=== PATIENT | female | born 1945 | race Caucasian/White ===

== ENCOUNTER → 2017-07-22 | Outpatient (CLI) | payer MEDICARE, OTHER | END | disposition home or self-care (01) | LOC: OIH 10:38 | PROVIDERS: ATTEND Family Medicine | DX: S83.411A Sprain of medial collateral ligament of right knee, initial encounter (principal); X58.XXXA Exposure to other specified factors, initial encounter; Y93.89 Activity, other specified; Y92.89 Other specified places as the place of occurrence of the external cause; Y99.8 Other external cause status | CPT/HCPCS: 73562 ==

== ENCOUNTER → 2018-05-04 | Outpatient (CLI) | payer MEDICARE | END | disposition home or self-care (01) | LOC: RAH 13:09 | PROVIDERS: ATTEND Family Medicine | DX: R22.42 Localized swelling, mass and lump, left lower limb (principal) | CPT/HCPCS: 76882 ==

== ENCOUNTER → 2019-09-15 | Outpatient (CLI) | payer MEDICARE | END | disposition home or self-care (01) | LOC: RAH 11:30 | PROVIDERS: ATTEND Family Medicine | DX: I65.21 Occlusion and stenosis of right carotid artery (principal); I69.320 Aphasia following cerebral infarction | CPT/HCPCS: 93880 ==

== ENCOUNTER → 2019-11-02 | Outpatient (CLI) | payer OTHER ==
[~2019-11-02] MED LIST: ASPI-556 PO; BIOT10005 PO; BIOT10006 PO; CINN500C PO; CLOP75TA14 PO; DOXY100C2 PO; GLIM4TAB36 PO; MAGN400C PO; NITR0.4T50 SL; ROSU5TAB PO; TELM40TA8 PO; ozempic SQ
== END | disposition home or self-care (01) ==
LOC: OIH 10:04
PROVIDERS: ATTEND Internal Medicine Cardiovascular Disease
DX: Z13.6 Encounter for screening for cardiovascular disorders (principal)
CPT/HCPCS: 75571

== ENCOUNTER → 2019-11-20 | Outpatient (CLI) | payer MEDICARE ==
[~2019-11-20] MED LIST changes: -ASPI-556 PO; -BIOT10005 PO; -BIOT10006 PO; -CINN500C PO; -CLOP75TA14 PO; -DOXY100C2 PO; -GLIM4TAB36 PO; -MAGN400C PO; -NITR0.4T50 SL; +REGADENOSON 0.4 MG/5 ML PF SYG IVP SCH; -ROSU5TAB PO; -TELM40TA8 PO; -ozempic SQ
== END | disposition home or self-care (01) ==
LOC: SHCH 08:22
PROVIDERS: ATTEND Internal Medicine Cardiovascular Disease
DX: I35.0 Nonrheumatic aortic (valve) stenosis (principal); I10 Essential (primary) hypertension
CPT/HCPCS: 78452; 93017; 96374; A9500 ×2; J2785

== ENCOUNTER → 2019-11-22 | Outpatient (CLI) | payer MEDICARE ==
[~2019-11-22] MED LIST changes: +ASPI-556 PO; +BIOT10005 PO; +BIOT10006 PO; +CINN500C PO; +CLOP75TA14 PO; +DOXY100C2 PO; +FENTANYL CITRATE PF 50 MCG/1 ML 2ML VIAL ONE; +GLIM4TAB36 PO; +GLYCOPYRROLATE 1 MG/5 ML SYRINGE ONE; +LIDOCAINE PF 2% 5ML ABBOJECT ONE; +MAGN400C PO; +MIDAZOLAM HCL 1 MG/ML 2ML VIAL ONE; +NEOSTIGMINE 5MG/5ML SYR IV ONE; +NITR0.4T50 SL; +PROPOFOL 10 MG/ML 20ML VIAL IV ONE; -REGADENOSON 0.4 MG/5 ML PF SYG IVP SCH; +ROCURONIUM 10MG/1ML SYR 10 MG/ML ML ONE; +ROPIVACAINE 0.5% 5MG/ML 30ML IJ ONE; +ROSU5TAB PO; +SODIUM CHLORIDE 0.9% 10 ML VIAL ONE; +TELM40TA8 PO; +ozempic SQ
== END | disposition home or self-care (01) ==
LOC: SHCH 14:38
PROVIDERS: ATTEND Internal Medicine Cardiovascular Disease
DX: I65.21 Occlusion and stenosis of right carotid artery (principal); I10 Essential (primary) hypertension
CPT/HCPCS: 93306; J2001; J2250; J2704; J2710; J2795; J3010; J3490

== ENCOUNTER 2020-01-09 07:56 | Observation (INO) | payer MEDICARE ==
[~2020-01-09] VITALS: Ht 165.1 cm; Wt 106.0 kg
[2020-01-09] VITALS (8 sets, daily range): BP systolic 132–156; BP diastolic 59–75
[~2020-01-09 07:56] MED LIST changes: -BIOT10006 PO; -CLOP75TA14 PO; -FENTANYL CITRATE PF 50 MCG/1 ML 2ML VIAL ONE; -GLYCOPYRROLATE 1 MG/5 ML SYRINGE ONE; -LIDOCAINE PF 2% 5ML ABBOJECT ONE; -MIDAZOLAM HCL 1 MG/ML 2ML VIAL ONE; -NEOSTIGMINE 5MG/5ML SYR IV ONE; -NITR0.4T50 SL; -PROPOFOL 10 MG/ML 20ML VIAL IV ONE; -ROCURONIUM 10MG/1ML SYR 10 MG/ML ML ONE; -ROPIVACAINE 0.5% 5MG/ML 30ML IJ ONE; -ROSU5TAB PO; -SODIUM CHLORIDE 0.9% 10 ML VIAL ONE; -ozempic SQ
[2020-01-09 08:33] LABS: APPEARANCE,URINE Clear (CLEAR); BILIRUBIN,URINE Negative (NEGATIVE); COLOR,URINE Yellow (YELLOW); GLUCOSE, URINE (UA) 250 mg/dL (NEGATIVE); KETONES,URINE Negative (NEGATIVE); LEUKOCYTE ESTERASE ,URINE Negative (NEGATIVE); NITRATE,URINE Negative (NEGATIVE); OCCULT BLOOD,URINE Negative (NEGATIVE); PROTEIN,URINE Negative (NEGATIVE)
[2020-01-09 09:00] LABS: BASOPHILS % (AUTO) 0.9 % (0.0-5.0); EOSINOPHILS % (AUTO) 3.3 % (0.0-8.0); MEAN CORPUSCULAR HGB CONC 32.8 g/dL (32.0-36.0); MEAN CORPUSCULAR VOLUME 94.8 fL (79-99); MONOCYTES % (AUTO) 10.1 % (3.0-13.0); PLATELET COUNT (AUTO) 251 K/uL (130-400); RED BLOOD CELL COUNT(AUTO) 4.22 MIL/uL (4.00-5.50); RED CELL DISTRIBUTION WIDTH 13.1 % (11.0-15.5); WHITE BLOOD COUNT (AUTO) 5.5 K/uL (4.8-10.8)
[2020-01-09 09:13] LABS: INR 0.99 (0.85-1.15); PARTIAL THROMBOPLASTIN TIME 27.9 SEC (26.3-35.5); PROTHROMBIN TIME 10.7 SEC (9.6-11.6)
[2020-01-09 09:15] LABS: BACTERIA,URINE Rare /HPF (None Seen); RBC,URINE 0-1 /HPF (0-1); WBC,URINE 0-1 /HPF (0-1)
[2020-01-09] MEDS ORDERED: SODIUM CHLORIDE 0.9% 1000ML 1,000 ML IV ONE (09:24)
[2020-01-09 09:27] LABS: CREATININE 0.9 mg/dL (0.5-1.5); POTASSIUM 4.2 mmol/L (3.5-5.1)
--- NOTE | 2020-01-09 09:45 | NUR ---
16 TAJIK KELLER CATHETER INSERTED UNDER STERILE TECHNIQUE BY SHELLY TIDWELL RN. URINE IN LINE NOTED. BAG SECURED TO LEG.
[2020-01-09] MEDS ORDERED: SODIUM BICARB 50MEQ 50ML VIAL ONE (09:47)
[2020-01-09] MEDS ORDERED: HEPARIN SODIUM 1000UNIT/ML 10ML VIAL ONE (09:48)
[2020-01-09] MEDS ORDERED: IOHEXOL-350 50ML VIAL IV ONE (09:48)
[2020-01-09] MEDS ORDERED: IOHEXOL 350 MG/ML 100ML INFUS..BTL IV ONE (09:48)
[2020-01-09] MEDS ORDERED: NITROGLYCERIN 2 MG/VIAL VIAL IV ONE (09:48)
[2020-01-09] MEDS ORDERED: LIDOCAINE HCL 2% 20ML ONE (09:48)
[2020-01-09] MEDS ORDERED: MIDAZOLAM HCL 1 MG/ML 2ML VIAL ONE (09:50)
[2020-01-09] MEDS ORDERED: MEPERIDINE-PF 25 MG/ML SYG ONE (09:50)
[2020-01-09] MEDS ORDERED: ASPIRIN 325MG EC TAB 325 MG TABLET.DR PO ONE (11:08)
[2020-01-09] MEDS ORDERED: CLOPIDOGREL BISULFATE 300 MG TAB ONE (11:08)
[2020-01-09] MEDS: SODIUM CHLORIDE 0.9% 1000ML 1,000 ML IV SCH ×2 (11:19→20:28)
[2020-01-09] MEDS ORDERED: ONDANSETRON HCL 4 MG/2 ML VIAL IVP PRN (11:30)
[2020-01-09] MEDS ORDERED: GLUCAGON 1MG KIT 1 MG ML IM PRN (11:30)
[2020-01-09] MEDS ORDERED: ACETAMINOPHEN 325 MG TAB PO PRN (11:30)
[2020-01-09] MEDS: INSULIN HUMULIN R 100 UNIT/ML 3ML SQ SCH ×5 (11:30→20:28)
[2020-01-09] MEDS ORDERED: DEXTROSE 50%-WATER 50 ML DISP.SYRIN IV PRN (11:30)
[2020-01-09] MEDS ORDERED: HYDRALAZINE HCL 20 MG/ML VIAL IM PRN (13:45)
[2020-01-09] MEDS ORDERED: LOSARTAN 50 MG TABLET PO SCH (21:00)
[2020-01-09] MEDS ORDERED: GLIMEPIRIDE 2 MG TABLET PO SCH (21:00)
[2020-01-09] MEDS ORDERED: MAGNESIUM OXIDE 400 MG TABLET PO SCH (21:00)
[2020-01-10 00:04] VITALS: BP 125/52
[2020-01-10 04:03] LABS: HEMATOCRIT 38.5 % (36-48); MEAN CORPUSCULAR HEMOGLOBIN 31.3 pg (27.0-33.0); MEAN CORPUSCULAR HGB CONC 33.2 g/dL (32.0-36.0); MEAN CORPUSCULAR VOLUME 94.1 fL (79-99); RED BLOOD CELL COUNT(AUTO) 4.09 MIL/uL (4.00-5.50); WHITE BLOOD COUNT (AUTO) 6.7 K/uL (4.8-10.8)
[2020-01-10 04:08] VITALS: BP 136/58
[2020-01-10 04:22] LABS: ALBUMIN 3.4 g/dL (3.5-5.0); BILIRUBIN,TOTAL 0.5 mg/dL (0.2-1.0); CREATININE 0.8 mg/dL (0.5-1.5); POTASSIUM 4.3 mmol/L (3.5-5.1); TOTAL PROTEIN, SERUM 6.9 g/dL (6.0-8.3)
[2020-01-10] MEDS: INSULIN HUMULIN R 100 UNIT/ML 3ML SQ SCH ×4 (05:07→11:35)
[2020-01-10] MEDS: SODIUM CHLORIDE 0.9% 1000ML 1,000 ML IV SCH (05:07)
--- NOTE | 2020-01-10 07:45 | NUR ---
AM ASSESSMENT PT LAYING IN BED, WATCHING TV. A/O X 3. NO SOB. NO DISTRESS NOTED. DENIES CHEST PAIN OR DISCOMFORT. DENIES PALPITATIONS. TELE: SB. DENIES N/V AND/OR DIARRHEA. RT GROIN DSG DRY & INTACT. NO BLEEDING, NO HEMATOMA NOTED. PUNCTURE SITE SOFT, NON-TENDER. (+) BILATERAL PEDAL PULSES. BLE PINK & WARM TO TOUCH. UP AD DONNELL. INSTRUCTED TO CALL FOR ASSISTANCE. CALL EILEEN W/IN REACH.
[2020-01-10 08:33] VITALS: BP 133/65
[2020-01-10] MEDS ORDERED: ASPIRIN 81 MG EC TAB PO SCH (09:00)
[2020-01-10] MEDS ORDERED: CLOPIDOGREL BISULFATE 75 MG TAB PO SCH (09:00)
[2020-01-10] MEDS ORDERED: DOXYCYCLINE HYCLATE 100 MG TABLET PO SCH (09:00)
[2020-01-10 12:28] VITALS: BP 139/57
[2020-01-10] MEDS ORDERED: CLOP75TA14 PO (15:54)
--- NOTE | 2020-01-10 16:20 | NUR ---
[id number] Patient signed GARZA Letter, i faxed GARZA Letter to [phone] and placed in chart under consent tab.
[2020-01-10 16:50] VITALS: BP 128/63
--- NOTE | 2020-01-10 17:20 | NUR ---
DISCHARGE VERBAL & WRITTEN DISCHARGE INSTRUCTIONS REVIEWED & GIVEN TO PT. QUESTIONS ENCOURAGED & CLARIFIED. PROPER CARE & ACTIVITY AFTER LEFT HEART CATH W/STENT REVIEWED. NEW PRESCRIBED MEDICATION REVIEWED. REINFORCED IMPORTANCE OF TAKING PLAVIX PRESCRIBED & NOT MISSING ANY DOSES. STATES UNDERSTANDING. PRESCRIPTION TRANSMITTED TO PHARMACY IN FILE. STENT CARD GIVEN TO PT. TELE ROSMERY REMOVED EARLIER. IV DC'D @ THIS TIME. PT TO GATHER PERSONAL BELONGINGS. FRIEND TO TRANSPLANT NURSE PRACTITIONER PT FROM [facility] – [place].
--- NOTE | 2020-01-10 17:50 | NUR ---
DISCHARGE FRIEND HERE TO TAKE PT HOME. PT TAKEN TO PRIVATE VEHICLE VIA WC BY Eliseo MEDEIROS PCP. NO DISTRESS NOTED.
[2020-01-10] MEDS ORDERED: CINNAMON 500 MG PO SCH (21:00)
[2020-01-10] MEDS ORDERED: BIOTIN 10000 MCG PO SCH (21:00)
[2020-04-23] MEDS ORDERED: NITR0.4T50 SL (11:42)
[2020-04-23] MEDS ORDERED: CINN500C PO (11:42)
[2020-04-23] MEDS ORDERED: BIOT10006 PO (11:42)
[2020-04-23] MEDS ORDERED: ROSU5TAB PO (11:43)
[2020-04-23] MEDS ORDERED: ozempic SQ (11:51)
== END 2020-01-10 17:50 | disposition home or self-care (01) ==
LOC: CLH 07:56 → DAH 07:56 → CLH 07:57 → DAHIP 07:57 → 4AH 12:46
PROVIDERS: ADMIT Internal Medicine Pulmonary Disease; ATTEND Internal Medicine Pulmonary Disease
DX: I25.119 Atherosclerotic heart disease of native coronary artery with unspecified angina pectoris (principal); I10 Essential (primary) hypertension; E11.9 Type 2 diabetes mellitus without complications; E78.5 Hyperlipidemia, unspecified; I45.10 Unspecified right bundle-branch block; E66.9 Obesity, unspecified; L71.9 Rosacea, unspecified; Z88.1 Allergy status to other antibiotic agents; Z88.5 Allergy status to narcotic agent; Z88.8 Allergy status to other drugs, medicaments and biological substances; Z79.899 Other long term (current) drug therapy; Z79.82 Long term (current) use of aspirin; Z98.84 Bariatric surgery status; Z79.02 Long term (current) use of antithrombotics/antiplatelets
CPT/HCPCS: 36415 ×2; 71045; 80048; 80053; 80061; 81001; 82948 ×7; 85025; 85027; 85347 ×2; 85610; 85730; 93005; 93458; 94660 ×2; A4215; A4216; A4221; A4222; A4223 ×3; A4606; A4663; C1760; C1769; C1874; C1887; C1894; C9600; G0378 ×18; J1644 ×2; J1815 ×3; J2175; J2250; J3490 ×3; J7030; Q9965 ×2; Q9967 ×2

== ENCOUNTER → 2020-04-03 | Outpatient (CLI) | payer MEDICARE ==
[~2020-04-03] MED LIST changes: +BIOT10006 PO; +CLOP75TA14 PO; +NITR0.4T50 SL; +ROSU5TAB PO; +ozempic SQ
== END | disposition home or self-care (01) ==
LOC: RAH 08:09
PROVIDERS: ATTEND Family Medicine
DX: Z12.31 Encounter for screening mammogram for malignant neoplasm of breast (principal)
CPT/HCPCS: 77067

== ENCOUNTER 2020-04-24 06:00 | Observation (INO) | payer MEDICARE ==
[2020-04-22 11:19] LABS: BASOPHILS % (AUTO) 0.8 % (0.0-5.0); EOSINOPHILS % (AUTO) 3.4 % (0.0-8.0); LYMPHOCYTES % (AUTO) 27.6 % (21.0-51.0); MEAN CORPUSCULAR HEMOGLOBIN 31.5 pg (27.0-33.0); MEAN CORPUSCULAR HGB CONC 32.7 g/dL (32.0-36.0); MEAN CORPUSCULAR VOLUME 96.3 fL (79-99); NEUTROPHILS % (AUTO) 58.8 % (40.0-77.0); PLATELET COUNT (AUTO) 249 K/uL (130-400); RED BLOOD CELL COUNT(AUTO) 4.57 MIL/uL (4.00-5.50); RED CELL DISTRIBUTION WIDTH 12.8 % (11.0-15.5); WHITE BLOOD COUNT (AUTO) 5.2 K/uL (4.8-10.8)
[2020-04-22 11:20] LABS: CREATININE 0.9 mg/dL (0.5-1.5); POTASSIUM 4.2 mmol/L (3.5-5.1)
[2020-04-22 12:31] LABS: INR 0.99 (0.85-1.15); PARTIAL THROMBOPLASTIN TIME 27.3 SEC (26.3-35.5); PROTHROMBIN TIME 10.7 SEC (9.6-11.6)
[2020-04-22 12:51] LABS: APPEARANCE,URINE Clear (CLEAR); BILIRUBIN,URINE Negative (NEGATIVE); COLOR,URINE Yellow (YELLOW); GLUCOSE, URINE (UA) Negative (NEGATIVE); KETONES,URINE Negative (NEGATIVE); LEUKOCYTE ESTERASE ,URINE Moderate (NEGATIVE); NITRATE,URINE Negative (NEGATIVE); OCCULT BLOOD,URINE Negative (NEGATIVE); PROTEIN,URINE Negative (NEGATIVE)
[2020-04-22 13:09] LABS: BACTERIA,URINE Rare /HPF (None Seen); RBC,URINE 0-1 /HPF (0-1); SQUAMOUS EPITHELIAL CELL,UR Rare /HPF (0-2)
--- NOTE | 2020-04-23 13:52 | NUR ---
Reported ua results of moderate leuktrase and wbc 2-5, and urine culture of [id number], no new orders.
[~2020-04-24] VITALS: Ht 165.1 cm; Wt 110.7 kg
[2020-04-24] VITALS (11 sets, daily range): BP systolic 117–149; BP diastolic 53–76
[~2020-04-24 06:00] MED LIST changes: -BIOT10006 PO; -DOXY100C2 PO; -GLIM4TAB36 PO
[2020-04-24] MEDS ORDERED: SODIUM CHLORIDE 0.9% 1000ML 1,000 ML IV ONE (06:16)
[2020-04-24] MEDS ORDERED: GLIM4TAB36 PO (06:43)
[2020-04-24] MEDS ORDERED: SODIUM BICARB 50MEQ 50ML VIAL ONE (07:18)
[2020-04-24] MEDS ORDERED: IOHEXOL 350 MG/ML 100ML INFUS..BTL IV ONE (07:19)
[2020-04-24] MEDS ORDERED: NITROGLYCERIN 2 MG/VIAL VIAL IV ONE (07:19)
[2020-04-24] MEDS ORDERED: MEPERIDINE-PF 25 MG/ML SYG ONE ×2 (07:19→08:54)
[2020-04-24] MEDS ORDERED: IOHEXOL-350 50ML VIAL IV ONE (07:19)
[2020-04-24] MEDS ORDERED: HEPARIN SODIUM 1000UNIT/ML 10ML VIAL ONE (07:19)
[2020-04-24] MEDS ORDERED: MIDAZOLAM HCL 1 MG/ML 2ML VIAL ONE ×2 (07:19→08:54)
[2020-04-24] MEDS ORDERED: LIDOCAINE HCL 2% 20ML ONE (07:20)
--- NOTE | 2020-04-24 07:30 | NUR ---
PROCEDURE PT TAKEN TO ELECTRICIAN TELEPHONE VIA BED, NO DISTRESS NOTED. DR Zaid ONTIVEROS INFORMED PATIENT WISHES TO GET KELLER CATHETER SINCE SHE HAS PROBLEMS URINATING WHEN BEDREST. DR Zaid ONTIVEROS CAME TO SPEAK TO PATIENT ABOUT RISK OF KELLER CATHETER , NO ORDERS RECEIVED AT THIS TIME.
[2020-04-24] MEDS ORDERED: EPTIFIBATIDE 2 MG/ML 10 ML VIAL IVP ONE (09:01)
[2020-04-24] MEDS ORDERED: ONDANSETRON HCL 4 MG/2 ML VIAL IVP PRN (09:15)
[2020-04-24] MEDS ORDERED: DEXTROSE 50%-WATER 50 ML DISP.SYRIN IV PRN (09:15)
[2020-04-24] MEDS ORDERED: SODIUM CHLORIDE 0.9% 1000ML 1,000 ML IV SCH (09:15)
[2020-04-24] MEDS ORDERED: NITROGLYCERIN 0.4 MG SL TAB SL SCH (09:15)
[2020-04-24] MEDS: INSULIN HUMULIN R 100 UNIT/ML 3ML SQ SCH ×3 (11:28→20:15)
[2020-04-24] MEDS ORDERED: MAGNESIUM OXIDE 400 MG TABLET PO ONE (18:33)
[2020-04-24] MEDS ORDERED: GLIMEPIRIDE 2 MG TABLET ONE (18:33)
[2020-04-24] MEDS: GLIMEPIRIDE 2 MG TABLET PO SCH (19:32)
[2020-04-24] MEDS ORDERED: CINNAMON BARK 500 MG PO SCH (21:00)
[2020-04-24] MEDS ORDERED: NON-FORMULARY MEDICATION 1 EACH (Glimepiride 4 MG) PO SCH (21:00)
[2020-04-24] MEDS ORDERED: BIOTIN 10,000 MCG PO SCH (21:00)
[2020-04-24] MEDS ORDERED: TELMISARTAN 40 MG PO SCH ×2 (21:00)
[2020-04-24] MEDS ORDERED: BIOTIN 10000 MCG PO SCH (21:00)
[2020-04-24] MEDS ORDERED: NON-FORMULARY MEDICATION 1 EACH (Magnesium Oxide (Magnesium) 400 MG) PO SCH (21:00)
[2020-04-24] MEDS ORDERED: CINNAMON BARK 500MG PO SCH (21:00)
[2020-04-24] MEDS ORDERED: MAGNESIUM OXIDE 400 MG TABLET PO SCH (21:00)
[2020-04-25 00:08] VITALS: BP 113/52
[2020-04-25 03:42] VITALS: BP 115/53
[2020-04-25] MEDS: INSULIN HUMULIN R 100 UNIT/ML 3ML SQ SCH ×2 (05:30→11:30)
[2020-04-25 05:51] LABS: BASOPHILS % (AUTO) 0.7 % (0.0-5.0); EOSINOPHILS % (AUTO) 3.9 % (0.0-8.0); HEMATOCRIT 37.8 % (36-48); LYMPHOCYTES % (AUTO) 25.8 % (21.0-51.0); MEAN CORPUSCULAR HEMOGLOBIN 31.3 pg (27.0-33.0); MEAN CORPUSCULAR HGB CONC 33.1 g/dL (32.0-36.0); MEAN CORPUSCULAR VOLUME 94.7 fL (79-99); MONOCYTES % (AUTO) 12.1 % (3.0-13.0); NEUTROPHILS % (AUTO) 56.8 % (40.0-77.0); PLATELET COUNT (AUTO) 211 K/uL (130-400); RED BLOOD CELL COUNT(AUTO) 3.99 MIL/uL (4.00-5.50); RED CELL DISTRIBUTION WIDTH 12.7 % (11.0-15.5); WHITE BLOOD COUNT (AUTO) 5.6 K/uL (4.8-10.8)
[2020-04-25 05:58] LABS: HEMOGLOBIN A1C 8.2 % (4.0-6.0)
[2020-04-25 06:18] LABS: BILIRUBIN,TOTAL 0.5 mg/dL (0.2-1.0); CREATININE 0.7 mg/dL (0.5-1.5); POTASSIUM 4.1 mmol/L (3.5-5.1); TOTAL PROTEIN, SERUM 6.7 g/dL (6.0-8.3)
[2020-04-25] MEDS ORDERED: NON-FORMULARY MEDICATION 1 EACH (Rosuvastatin Calcium (Crestor) 5 MG) PO SCH (09:00)
[2020-04-25] MEDS ORDERED: ASPIRIN 81 MG EC TAB PO SCH (09:00)
[2020-04-25] MEDS ORDERED: CRESTOR 5MG PO SCH (09:00)
[2020-04-25] MEDS ORDERED: CLOPIDOGREL BISULFATE 75 MG TAB PO SCH (09:00)
[2020-04-25] MEDS: GLIMEPIRIDE 2 MG TABLET PO SCH (09:18)
[2020-04-25 09:33] VITALS: BP 121/59
--- NOTE | 2020-04-25 11:26 | NUR ---
[id number] patient signed GARZA Letter, I faxed GARZA Letter to [phone] and placed in chart under consent tab.
[2020-04-25 12:02] VITALS: BP 138/66
== END 2020-04-25 14:10 | disposition home or self-care (01) ==
LOC: DAH 06:00 → DAHIP 06:01 → 4AH 10:09
PROVIDERS: ADMIT Internal Medicine; ATTEND Internal Medicine
DX: I25.110 Atherosclerotic heart disease of native coronary artery with unstable angina pectoris (principal); I10 Essential (primary) hypertension; E78.5 Hyperlipidemia, unspecified; E66.01 Morbid (severe) obesity due to excess calories; R11.2 Nausea with vomiting, unspecified; E11.9 Type 2 diabetes mellitus without complications; Z98.84 Bariatric surgery status
CPT/HCPCS: 36415 ×2; 71045; 80048; 80053; 80061; 81001; 82948 ×6; 83036; 85025 ×2; 85610; 85730; 87088; 93005; 93458; 96360; 96361 ×2; A4215; A4216; A4221; A4222; A4223 ×3; A4344; A4606; A4663; C1725 ×4; C1760; C1769 ×2; C1874; C1887 ×2; C1894; C9600; G0378 ×19; J1327; J1644 ×2; J1815; J2175 ×2; J2250 ×2; J3490 ×3; J7030; Q9965 ×2; Q9967; 99156; 99157

== ENCOUNTER → 2020-05-16 | Outpatient (CLI) | payer MEDICARE ==
[~2020-05-16] MED LIST changes: +GLIM4TAB36 PO; -ozempic SQ
== END | disposition home or self-care (01) ==
LOC: RAH 08:41
PROVIDERS: ATTEND Family Medicine
DX: R92.8 Other abnormal and inconclusive findings on diagnostic imaging of breast (principal)
CPT/HCPCS: 76641

== ENCOUNTER → 2020-07-03 | Outpatient (CLI) | payer MEDICARE | END | disposition home or self-care (01) | LOC: RAH 08:42 | PROVIDERS: ATTEND Internal Medicine Gastroenterology | DX: K44.9 Diaphragmatic hernia without obstruction or gangrene (principal); K21.9 Gastro-esophageal reflux disease without esophagitis; R13.10 Dysphagia, unspecified; Z98.890 Other specified postprocedural states | CPT/HCPCS: 74220 ==

== ENCOUNTER → 2020-10-02 | Outpatient (CLI) | payer MEDICARE | END | disposition home or self-care (01) | LOC: SHCH 08:25 | PROVIDERS: ATTEND Internal Medicine Cardiovascular Disease | DX: I65.23 Occlusion and stenosis of bilateral carotid arteries (principal) | CPT/HCPCS: 93880 ==

== ENCOUNTER 2020-11-16 05:46 | Inpatient (IN) | payer MEDICARE ==
[2020-11-16] VITALS (22 sets, daily range): BP systolic 112–156; BP diastolic 52–69
[~2020-11-16] VITALS: Ht 165.1 cm; Wt 110.4 kg
[2020-11-16] MEDS ORDERED: METOCLOPRAMIDE 10 MG/2 ML VIAL ONE (06:27)
[2020-11-16] MEDS ORDERED: ONDANSETRON 4MG INJ ONE ×2 (06:28→13:16)
[2020-11-16] MEDS ORDERED: PANTOPRAZOLE 40 MG/VIAL ONE (06:28)
[2020-11-16] MEDS ORDERED: FAMOTIDINE 20MG VIAL IV ONE (06:28)
[2020-11-16 07:07] LABS: BASOPHILS % (AUTO) 0.3 % (0.0-5.0); EOSINOPHILS % (AUTO) 0.4 % (0.0-8.0); HEMATOCRIT 39.3 % (36-48); LYMPHOCYTES % (AUTO) 7.2 % (21.0-51.0); MEAN CORPUSCULAR HGB CONC 33.1 g/dL (32.0-36.0); MEAN CORPUSCULAR VOLUME 93.8 fL (79-99); MONOCYTES % (AUTO) 8.5 % (3.0-13.0); NEUTROPHILS % (AUTO) 83.1 % (40.0-77.0); PLATELET COUNT (AUTO) 261 K/uL (130-400); RED BLOOD CELL COUNT(AUTO) 4.19 MIL/uL (4.00-5.50); RED CELL DISTRIBUTION WIDTH 13.2 % (11.0-15.5); WHITE BLOOD COUNT (AUTO) 14.1 K/uL (4.8-10.8)
[2020-11-16 07:09] LABS: APPEARANCE,URINE Clear (CLEAR); BILIRUBIN,URINE Negative (NEGATIVE); COLOR,URINE Yellow (YELLOW); GLUCOSE, URINE (UA) 250 mg/dL (NEGATIVE); KETONES,URINE Negative (NEGATIVE); LEUKOCYTE ESTERASE ,URINE Trace (NEGATIVE); NITRATE,URINE Negative (NEGATIVE); OCCULT BLOOD,URINE Negative (NEGATIVE); PH,URINE 6.5 (5.0-8.0); PROTEIN,URINE Negative (NEGATIVE)
[2020-11-16 07:27] LABS: INR 1.01 (0.85-1.15)
[2020-11-16 07:29] LABS: PARTIAL THROMBOPLASTIN TIME 21.4 SEC (26.3-35.5)
[2020-11-16 07:31] LABS: ALBUMIN 3.6 g/dL (3.5-5.0); BILIRUBIN,TOTAL 0.9 mg/dL (0.2-1.0); CREATININE 0.8 mg/dL (0.5-1.5); POTASSIUM 5.6 mmol/L (3.5-5.1); TOTAL PROTEIN, SERUM 7.6 g/dL (6.0-8.3)
[2020-11-16 08:14] LABS: BACTERIA,URINE Few /HPF (None Seen); RBC,URINE 0-1 /HPF (0-1)
[2020-11-16 08:16] LABS: WBC,URINE 0-1 /HPF (0-1)
[2020-11-16] MEDS ORDERED: IOHEXOL 350 MG/ML 100ML INFUS..BTL IV ONE (09:10)
[2020-11-16] MEDS ORDERED: KETOROLAC 15MG/ML VIAL (15MG/ML) ONE (09:49)
[2020-11-16] MEDS ORDERED: ZOSYN 3.375GM+NS 50ML 50 ML IV ONE (10:10)
[2020-11-16] MEDS ORDERED: ONDANSETRON 4MG INJ IVP PRN (10:45)
[2020-11-16] MEDS ORDERED: LABETALOL 20MG VIAL IV PRN (10:45)
[2020-11-16] MEDS ORDERED: POTASSIUM CHLORIDE 20MEQ/100ML 100 ML IV PRN ×2 (11:00)
[2020-11-16] MEDS ORDERED: KCL 20 MEQ ERTAB PO PRN (11:00)
[2020-11-16] MEDS ORDERED: DEXTROSE 50%-WATER 50 ML DISP.SYRIN IV PRN (11:00)
[2020-11-16] MEDS ORDERED: POTASSIUM CHLORIDE 10% ELIXIR 20 MEQ/15 ML UDCUP PO PRN (11:00)
[2020-11-16] MEDS ORDERED: GLUCAGON 1MG KIT 1 MG ML IM PRN (11:00)
[2020-11-16] MEDS ORDERED: LIDOCAINE HCL-MPF 1% 2ML VIAL IV PRN ×2 (11:00)
[2020-11-16] MEDS ORDERED: MAGNESIUM 2GM PREMIX 50ML 50 ML IV PRN (11:00)
[2020-11-16] MEDS ORDERED: KETOROLAC 15MG/ML VIAL (15MG/ML) IV PRN (11:30)
[2020-11-16] MEDS ORDERED: CALCIUM GLUC 1GM/10ML VIAL IV ONE (11:33)
[2020-11-16] MEDS: INSULIN HUMULIN R 100 UNIT/ML 3ML SQ SCH ×2 (12:00→19:47)
[2020-11-16] MEDS ORDERED: SUCCINYLCHOLINE CHLORIDE 20 MG/ML 10 ML VIAL ONE (13:15)
[2020-11-16] MEDS ORDERED: MIDAZOLAM HCL 1 MG/ML 2ML VIAL ONE (13:15)
[2020-11-16] MEDS ORDERED: DEXAMETHASONE SOD PHOSPHATE 10MG/ML 1ML VIAL ONE ×2 (13:15→14:59)
[2020-11-16] MEDS ORDERED: LIDOCAINE PF 100MG/5ML (2%) SYRINGE 5ML ONE (13:15)
[2020-11-16] MEDS ORDERED: NEOSTIGMINE 5MG/5ML SYR IV ONE (13:16)
[2020-11-16] MEDS ORDERED: ROCURONIUM 10MG/1ML SYR 10 MG/ML ML ONE (13:16)
[2020-11-16] MEDS ORDERED: PROPOFOL 10 MG/ML 20ML VIAL IV ONE (13:16)
[2020-11-16] MEDS ORDERED: GLYCOPYRROLATE 1 MG/5 ML SYRINGE ONE (13:16)
[2020-11-16] MEDS ORDERED: FENTANYL CITRATE PF 50 MCG/1 ML 2ML VIAL ONE (13:17)
[2020-11-16] MEDS ORDERED: CALCIUM GLUC 1GM/10ML VIAL IV SCH (13:30)
[2020-11-16] MEDS ORDERED: ALBUTEROL 0.083% 2.5 MG/3 ML INH IH ONE (13:30)
[2020-11-16] MEDS ORDERED: CALCIUM GLUC 1GM 1 GM in 0.9%NACL 100ML 100 ML IV SCH (13:30)
[2020-11-16] MEDS ORDERED: BUPIVACAINE/PF 0.5% 30ML VIAL ONE (13:56)
[2020-11-16] MEDS ORDERED: SUGAMMADEX SODIUM 200 MG/2 ML VIAL IV ONE (15:28)
[2020-11-16] MEDS: 0.9%NACL 1000ML 1,000 ML IV SCH ×3 (16:00→20:45)
[2020-11-16] MEDS ORDERED: MEPERIDINE-PF 25 MG/ML SYG ONE (16:11)
[2020-11-16] MEDS: ZOSYN 3.375GM+NS 50ML 50 ML IV SCH (18:42)
[2020-11-16] MEDS ORDERED: OXYCODONE/ACETAMIN 5/325MG TAB PO PRN (19:30)
[2020-11-16] MEDS: FAMOTIDINE 20MG VIAL IV SCH (22:14)
[2020-11-17] VITALS: BP 106/50
[2020-11-17] MEDS: ZOSYN 3.375GM+NS 50ML 50 ML IV SCH ×3 (01:23→18:15)
[2020-11-17 04:00] VITALS: BP 98/46
[2020-11-17] MEDS: 0.9%NACL 1000ML 1,000 ML IV SCH (04:56)
[2020-11-17 05:53] LABS: HEMATOCRIT 34.5 % (36-48); MEAN CORPUSCULAR HGB CONC 32.5 g/dL (32.0-36.0); MEAN CORPUSCULAR VOLUME 95.6 fL (79-99); RED BLOOD CELL COUNT(AUTO) 3.61 MIL/uL (4.00-5.50); RED CELL DISTRIBUTION WIDTH 13.5 % (11.0-15.5); WHITE BLOOD COUNT (AUTO) 15.6 K/uL (4.8-10.8)
[2020-11-17 06:12] LABS: CREATININE 0.9 mg/dL (0.5-1.5); POTASSIUM 3.8 mmol/L (3.5-5.1)
[2020-11-17] MEDS: INSULIN HUMULIN R 100 UNIT/ML 3ML SQ SCH ×4 (06:51→21:00)
[2020-11-17 09:24] VITALS: BP 131/60
[2020-11-17] MEDS: FAMOTIDINE 20MG VIAL IV SCH ×2 (10:26→21:22)
[2020-11-17 12:57] VITALS: BP 136/66
[2020-11-17] MEDS: ENOXAPARIN SODIUM 40 MG/0.4 ML SYRINGE SQ SCH (14:45)
[2020-11-17 17:39] VITALS: BP 127/62
[2020-11-17] MEDS ORDERED: MAGNESIUM CITRATE 296 ML SOLUTION PO ONE (17:40)
[2020-11-17] MEDS ORDERED: FUROSEMIDE 20MG VIAL IV SCH (17:40)
[2020-11-17 20:00] VITALS: BP 127/57
[2020-11-17] MEDS: INSULIN GLARGINE 100 UNITS/ML 10 ML VIAL SQ SCH (21:00)
[2020-11-17] MEDS: GLIMEPIRIDE 2 MG TABLET PO SCH (21:00)
[2020-11-17] MEDS: Telmisartan 40 MG PO SCH (21:00)
[2020-11-18] VITALS (7 sets, daily range): BP systolic 90–146; BP diastolic 48–60
[2020-11-18] MEDS: ZOSYN 3.375GM+NS 50ML 50 ML IV SCH ×3 (01:35→20:14)
[2020-11-18 05:25] LABS: BASOPHILS % (AUTO) 0.4 % (0.0-5.0); EOSINOPHILS % (AUTO) 0.9 % (0.0-8.0); HEMATOCRIT 37.2 % (36-48); LYMPHOCYTES % (AUTO) 16.5 % (21.0-51.0); MEAN CORPUSCULAR HEMOGLOBIN 32.1 pg (27.0-33.0); MEAN CORPUSCULAR HGB CONC 33.6 g/dL (32.0-36.0); MEAN CORPUSCULAR VOLUME 95.6 fL (79-99); MONOCYTES % (AUTO) 6.3 % (3.0-13.0); NEUTROPHILS % (AUTO) 75.3 % (40.0-77.0); PLATELET COUNT (AUTO) 222 K/uL (130-400); RED BLOOD CELL COUNT(AUTO) 3.89 MIL/uL (4.00-5.50); RED CELL DISTRIBUTION WIDTH 13.9 % (11.0-15.5); WHITE BLOOD COUNT (AUTO) 13.4 K/uL (4.8-10.8)
[2020-11-18 05:48] LABS: POTASSIUM 4.3 mmol/L (3.5-5.1)
[2020-11-18] MEDS: INSULIN HUMULIN R 100 UNIT/ML 3ML SQ SCH ×4 (07:30→20:14)
[2020-11-18] MEDS: FAMOTIDINE 20MG VIAL IV SCH ×2 (08:59→20:14)
[2020-11-18] MEDS ORDERED: FUROSEMIDE 20MG VIAL IV SCH (09:00)
[2020-11-18] MEDS: GLIMEPIRIDE 2 MG TABLET PO SCH (09:01)
[2020-11-18] MEDS: ENOXAPARIN SODIUM 40 MG/0.4 ML SYRINGE SQ SCH (09:01)
[2020-11-18] MEDS: IPRATROPIUM 0.5 MG/2.5 ML INH IH SCH ×2 (13:45→22:44)
[2020-11-18] MEDS: Telmisartan 40 MG PO SCH (20:14)
[2020-11-18] MEDS: INSULIN GLARGINE 100 UNITS/ML 10 ML VIAL SQ SCH (20:15)
[2020-11-19] MEDS: ZOSYN 3.375GM+NS 50ML 50 ML IV SCH ×3 (03:39→17:42)
[2020-11-19 04:00] VITALS: BP 115/71
[2020-11-19 05:35] LABS: BASOPHILS % (AUTO) 0.5 % (0.0-5.0); EOSINOPHILS % (AUTO) 3.3 % (0.0-8.0); HEMATOCRIT 35.7 % (36-48); LYMPHOCYTES % (AUTO) 21.4 % (21.0-51.0); MEAN CORPUSCULAR HEMOGLOBIN 30.7 pg (27.0-33.0); MEAN CORPUSCULAR HGB CONC 32.2 g/dL (32.0-36.0); MEAN CORPUSCULAR VOLUME 95.2 fL (79-99); MONOCYTES % (AUTO) 8.5 % (3.0-13.0); NEUTROPHILS % (AUTO) 65.4 % (40.0-77.0); PLATELET COUNT (AUTO) 252 K/uL (130-400); RED BLOOD CELL COUNT(AUTO) 3.75 MIL/uL (4.00-5.50); RED CELL DISTRIBUTION WIDTH 13.5 % (11.0-15.5); WHITE BLOOD COUNT (AUTO) 7.6 K/uL (4.8-10.8)
[2020-11-19 05:42] LABS: MAGNESIUM 2.1 mg/dL (1.80-2.40); POTASSIUM 4.2 mmol/L (3.5-5.1)
[2020-11-19] MEDS: IPRATROPIUM 0.5 MG/2.5 ML INH IH SCH ×3 (07:28→21:20)
[2020-11-19] MEDS: INSULIN HUMULIN R 100 UNIT/ML 3ML SQ SCH ×4 (07:30→21:00)
[2020-11-19 07:59] VITALS: BP 119/56
[2020-11-19] MEDS: ASPIRIN 81 MG EC TAB PO SCH (09:16)
[2020-11-19] MEDS: CLOPIDOGREL 75MG TAB PO SCH (09:17)
[2020-11-19] MEDS: FAMOTIDINE 20MG VIAL IV SCH ×2 (09:17→21:02)
[2020-11-19 11:47] VITALS: BP 121/47
[2020-11-19 16:31] VITALS: BP 129/69
[2020-11-19 20:10] VITALS: BP 117/57
[2020-11-19] MEDS: INSULIN GLARGINE 100 UNITS/ML 10 ML VIAL SQ SCH (21:00)
[2020-11-19] MEDS: Telmisartan 40 MG PO SCH (21:00)
[2020-11-20 00:24] VITALS: BP 131/50
[2020-11-20] MEDS: ZOSYN 3.375GM+NS 50ML 50 ML IV SCH (02:25)
[2020-11-20 04:41] VITALS: BP 149/67
[2020-11-20 05:41] LABS: HEMATOCRIT 35.5 % (36-48); MEAN CORPUSCULAR HEMOGLOBIN 30.9 pg (27.0-33.0); MEAN CORPUSCULAR HGB CONC 32.7 g/dL (32.0-36.0); MEAN CORPUSCULAR VOLUME 94.4 fL (79-99); RED BLOOD CELL COUNT(AUTO) 3.76 MIL/uL (4.00-5.50); RED CELL DISTRIBUTION WIDTH 13.3 % (11.0-15.5)
[2020-11-20] MEDS: INSULIN HUMULIN R 100 UNIT/ML 3ML SQ SCH ×2 (06:36→11:30)
[2020-11-20] MEDS: IPRATROPIUM 0.5 MG/2.5 ML INH IH SCH (07:03)
[2020-11-20 07:30] VITALS: BP 147/60
[2020-11-20] MEDS: ASPIRIN 81 MG EC TAB PO SCH (09:03)
[2020-11-20] MEDS: FAMOTIDINE 20MG VIAL IV SCH (09:03)
[2020-11-20] MEDS: CLOPIDOGREL 75MG TAB PO SCH (09:04)
[2020-11-20 11:00] VITALS: BP 143/56
[2021-02-06] MEDS ORDERED: DOXY100C5 PO (15:25)
== END 2020-11-20 13:30 | disposition home or self-care (01) | DRG 854 ==
LOC: EDH 05:46 → EDHIP 10:35 → OBSVTOIN 10:35 → 3DH 12:01
PROVIDERS: ADMIT Internal Medicine Critical Care Medicine; ATTEND Internal Medicine Critical Care Medicine
PROC: 0DTJ4ZZ Resection of Appendix, Percutaneous Endoscopic Approach (ICD-10-PCS; principal; 2020-11-16 14:45)
DX: A41.9 Sepsis, unspecified organism (principal); K35.891 Other acute appendicitis without perforation, with gangrene; E87.1 Hypo-osmolality and hyponatremia; E66.9 Obesity, unspecified; Z68.34 Body mass index [BMI] 34.0-34.9, adult; K21.9 Gastro-esophageal reflux disease without esophagitis; Z79.82 Long term (current) use of aspirin; Z79.899 Other long term (current) drug therapy; Z83.3 Family history of diabetes mellitus; Z95.5 Presence of coronary angioplasty implant and graft; Z79.02 Long term (current) use of antithrombotics/antiplatelets; Z98.84 Bariatric surgery status; Z96.659 Presence of unspecified artificial knee joint; E87.5 Hyperkalemia; E78.00 Pure hypercholesterolemia, unspecified; E11.9 Type 2 diabetes mellitus without complications; I10 Essential (primary) hypertension; Z79.84 Long term (current) use of oral hypoglycemic drugs; R79.89 Other specified abnormal findings of blood chemistry; I25.10 Atherosclerotic heart disease of native coronary artery without angina pectoris; Z82.3 Family history of stroke; Z80.8 Family history of malignant neoplasm of other organs or systems
CPT/HCPCS: 36415; 71045; 74177; 80048; 80053; 81001; 82948; 83605; 83690; 83735; 83880; 84132; 84484; 85025; 85027; 85610; 85730; 86900; 86901; 87040; 88304; 93005; 94640; 94664; A4344; C9113; G0378; J0330; J0610; J1100; J1650; J1815; J1885; J1940; J2001; J2175; J2250; J2405; J2543; J2704; J2710; J2765; J3010; J3490; J7030; Q9967

== ENCOUNTER 2021-02-05 11:01 | Observation (INO) | payer MEDICARE ==
[~2021-02-05] VITALS: Ht 165.1 cm; Wt 108.0 kg
[~2021-02-05 11:01] MED LIST changes: -BIOT10005 PO; -CINN500C PO; -MAGN400C PO
[2021-02-05 11:09] VITALS: BP 114/75
[2021-02-05 11:30] LABS: HEMATOCRIT 43.9 % (36-48); MEAN CORPUSCULAR HEMOGLOBIN 31.8 pg (27.0-33.0); MEAN CORPUSCULAR HGB CONC 32.8 g/dL (32.0-36.0); MEAN CORPUSCULAR VOLUME 96.9 fL (79-99); PLATELET COUNT (AUTO) 252 K/uL (130-400); RED BLOOD CELL COUNT(AUTO) 4.53 MIL/uL (4.00-5.50); RED CELL DISTRIBUTION WIDTH 12.9 % (11.0-15.5)
[2021-02-05 11:40] LABS: CREATININE 1.2 mg/dL (0.5-1.5); INR 1.04 (0.85-1.15); POTASSIUM 4.2 mmol/L (3.5-5.1); PROTHROMBIN TIME 11.3 SEC (9.6-11.6)
[2021-02-05 11:42] LABS: PARTIAL THROMBOPLASTIN TIME 21.7 SEC (26.3-35.5)
[2021-02-05 11:45] LABS: ALBUMIN 3.9 g/dL (3.5-5.0); BILIRUBIN,TOTAL 0.5 mg/dL (0.2-1.0); TOTAL PROTEIN, SERUM 8.1 g/dL (6.0-8.3)
[2021-02-05] MEDS ORDERED: ACETAMINOPHEN 500 MG TABLET PO SCH (12:30)
[2021-02-05 12:39] LABS: BAND NEUTROPHILS % (MANUAL) 2 % (0-2); BASOPHILS % (MANUAL) 2 % (0-2); EOSINOPHILS % (MANUAL) 1 % (1-6); LYMPHOCYTES % (MANUAL) 12 % (22-44); MAN.DIFF COMMENT-IMPRESSION MANUAL DIFFERENTIAL; MONOCYTES % (MANUAL) 4 % (2-9); PLATELET MORPHOLOGY COMMENT ADEQUATE; SEGMENTED NEUTROPHILS % 79 % (40-70)
[2021-02-05] MEDS ORDERED: ACETAMINOPHEN 650 MG SUPPOSITORY RC PRN (13:30)
[2021-02-05] MEDS ORDERED: HYDRALAZINE 20MG/ML VIAL IV PRN (13:30)
[2021-02-05] MEDS: CEFTRIAXONE 1G VIAL IVP SCH (13:30)
[2021-02-05] MEDS ORDERED: ONDANSETRON 4MG INJ IVP PRN (13:30)
[2021-02-05] MEDS ORDERED: ACETAMINOPHEN 325 MG TAB PO PRN (13:30)
[2021-02-05] MEDS ORDERED: CLONIDINE HCL 0.1 MG TABLET PO PRN (13:30)
[2021-02-05] MEDS: PANTOPRAZOLE 40 MG TAB DR PO SCH (13:30)
[2021-02-05] MEDS: LACTATED RINGERS 1000ML 1,000 ML IV SCH (14:09)
[2021-02-05 15:02] LABS: HEMOGLOBIN A1C 7.6 % (4.0-6.0)
[2021-02-05 15:07] LABS: CREATINE KINASE, TOTAL 155 U/L (21-232); MYOGLOBIN 78 ng/mL (10-92); TROPONIN I < 0.04 ng/mL (0.00-0.06)
[2021-02-05 16:06] VITALS: BP 131/55
[2021-02-05 17:28] LABS: APPEARANCE,URINE Clear (CLEAR); BILIRUBIN,URINE Negative (NEGATIVE); COLOR,URINE Yellow (YELLOW); GLUCOSE, URINE (UA) Negative (NEGATIVE); KETONES,URINE Negative (NEGATIVE); LEUKOCYTE ESTERASE ,URINE Trace (NEGATIVE); NITRATE,URINE Negative (NEGATIVE); OCCULT BLOOD,URINE Negative (NEGATIVE); PROTEIN,URINE Negative (NEGATIVE)
[2021-02-05 17:36] LABS: RBC,URINE 0-1 /HPF (0-1)
[2021-02-05 17:37] LABS: BACTERIA,URINE Few /HPF (None Seen); MUCUS,URINE Few LPF (None Seen); SQUAMOUS EPITHELIAL CELL,UR Moderate /HPF (0-2)
[2021-02-05] MEDS ORDERED: POTASSIUM CHLORIDE 10% ELIXIR 20 MEQ/15 ML UDCUP PO PRN (19:00)
[2021-02-05] MEDS ORDERED: KCL 20 MEQ ERTAB PO PRN (19:00)
[2021-02-05] MEDS ORDERED: GLUCAGON 1MG KIT 1 MG ML IM PRN (19:00)
[2021-02-05] MEDS ORDERED: POTASSIUM CHLORIDE 20MEQ/100ML 100 ML IV PRN (19:00)
[2021-02-05] MEDS ORDERED: LIDOCAINE HCL-MPF 1% 2ML VIAL IV PRN (19:00)
[2021-02-05] MEDS ORDERED: DEXTROSE 50%-WATER 50 ML DISP.SYRIN IV PRN (19:00)
[2021-02-05 19:43] LABS: CREATINE KINASE, TOTAL 82 U/L (21-232); MYOGLOBIN 46 ng/mL (10-92); TROPONIN I < 0.04 ng/mL (0.00-0.06)
[2021-02-05 20:10] VITALS: BP 138/52
[2021-02-05 20:11] VITALS: BP 138/65
[2021-02-05 20:13] VITALS: BP 144/64
[2021-02-05] MEDS: TELMISARTAN 40 MG PO SCH (21:00)
[2021-02-05] MEDS: INSULIN HUMULIN R 100 UNIT/ML 3ML SQ SCH (21:00)
[2021-02-05] MEDS ORDERED: IOHEXOL-350 75 ML VIAL IV ONE (21:26)
[2021-02-06] VITALS (7 sets, daily range): BP systolic 131–154; BP diastolic 59–96
[2021-02-06 02:06] LABS: CREATINE KINASE, TOTAL 80 U/L (21-232); MYOGLOBIN 29 ng/mL (10-92); TROPONIN I < 0.04 ng/mL (0.00-0.06)
[2021-02-06 06:24] LABS: BASOPHILS % (AUTO) 0.4 % (0.0-5.0); EOSINOPHILS % (AUTO) 0.8 % (0.0-8.0); HEMATOCRIT 39.2 % (36-48); LYMPHOCYTES % (AUTO) 19.4 % (21.0-51.0); MEAN CORPUSCULAR HEMOGLOBIN 31.2 pg (27.0-33.0); MEAN CORPUSCULAR HGB CONC 31.9 g/dL (32.0-36.0); MEAN CORPUSCULAR VOLUME 97.8 fL (79-99); MONOCYTES % (AUTO) 9.1 % (3.0-13.0); PLATELET COUNT (AUTO) 235 K/uL (130-400); RED BLOOD CELL COUNT(AUTO) 4.01 MIL/uL (4.00-5.50); RED CELL DISTRIBUTION WIDTH 13.2 % (11.0-15.5); WHITE BLOOD COUNT (AUTO) 9.1 K/uL (4.8-10.8)
[2021-02-06 06:52] LABS: PHOSPHORUS 3.8 mg/dL (2.5-4.9); POTASSIUM 4.7 mmol/L (3.5-5.1); THYROID STIMULATING HORMONE 1.35 uIU/mL (0.36-3.74)
[2021-02-06] MEDS: LACTATED RINGERS 1000ML 1,000 ML IV SCH ×2 (07:10→11:38)
[2021-02-06 07:20] LABS: B-TYPE NATRIURETIC PEPTIDE 27 pg/mL (0-100)
[2021-02-06] MEDS: PANTOPRAZOLE 40 MG TAB DR PO SCH (08:56)
[2021-02-06] MEDS: ASPIRIN 81MG CHEW TAB PO SCH (08:56)
[2021-02-06] MEDS: INSULIN HUMULIN R 100 UNIT/ML 3ML SQ SCH ×4 (08:56→21:45)
[2021-02-06] MEDS: CLOPIDOGREL 75MG TAB PO SCH (08:56)
[2021-02-06] MEDS: ROSUVASTATIN 5MG PO SCH (08:57)
[2021-02-06] MEDS ORDERED: ASPIRIN 81 MG EC TAB PO SCH (09:00)
[2021-02-06] MEDS ORDERED: 0.9%NACL 50ML 50 ML IV ONE (13:20)
[2021-02-06] MEDS: CEFTRIAXONE 1G VIAL IVP SCH ×2 (13:28→13:30)
[2021-02-06] MEDS ORDERED: SEMA1PEN3 SQ (15:25)
[2021-02-06] MEDS ORDERED: MAGN400T40 PO (15:25)
[2021-02-06] MEDS ORDERED: FAMO-136 PO (15:25)
[2021-02-06] MEDS ORDERED: DOXY100C2 PO (15:25)
[2021-02-06] MEDS ORDERED: BIOT10005 PO (15:25)
[2021-02-06] MEDS ORDERED: TOBROO OU (15:25)
[2021-02-06] MEDS: TELMISARTAN 40 MG PO SCH (21:45)
[2021-02-06] MEDS ORDERED: IOHEXOL-350 75 ML VIAL IV ONE (23:01)
[2021-02-07] MEDS: LACTATED RINGERS 1000ML 1,000 ML IV SCH (05:27)
[2021-02-07 06:15] VITALS: BP 124/62
[2021-02-07] MEDS: INSULIN HUMULIN R 100 UNIT/ML 3ML SQ SCH ×2 (07:23→11:30)
[2021-02-07 07:33] LABS: CREATININE 0.9 mg/dL (0.5-1.5); POTASSIUM 4.9 mmol/L (3.5-5.1)
[2021-02-07] MEDS: PANTOPRAZOLE 40 MG TAB DR PO SCH (07:41)
[2021-02-07] MEDS: ROSUVASTATIN 5MG PO SCH (09:00)
[2021-02-07] MEDS: CLOPIDOGREL 75MG TAB PO SCH (09:16)
[2021-02-07] MEDS: ASPIRIN 81MG CHEW TAB PO SCH (09:16)
[2021-02-07 17:21] VITALS: BP 126/64
== END 2021-02-07 21:49 ==
LOC: EDH 11:01 → EDHIP 13:18 → 3BH 02-07 19:04 → EDHIP 02-07 19:04 → 3BH 02-07 21:42
PROVIDERS: ADMIT Internal Medicine Critical Care Medicine; ATTEND Internal Medicine Critical Care Medicine
DX: I65.23 Occlusion and stenosis of bilateral carotid arteries (principal); R55 Syncope and collapse; I25.10 Atherosclerotic heart disease of native coronary artery without angina pectoris; I44.0 Atrioventricular block, first degree; I45.10 Unspecified right bundle-branch block; E11.9 Type 2 diabetes mellitus without complications; M19.90 Unspecified osteoarthritis, unspecified site; G47.33 Obstructive sleep apnea (adult) (pediatric); G51.0 Bell's palsy; I10 Essential (primary) hypertension; E78.5 Hyperlipidemia, unspecified; I74.3 Embolism and thrombosis of arteries of the lower extremities; I74.9 Embolism and thrombosis of unspecified artery; E66.9 Obesity, unspecified; E86.9 Volume depletion, unspecified; R77.8 Other specified abnormalities of plasma proteins; Z79.02 Long term (current) use of antithrombotics/antiplatelets; Z79.82 Long term (current) use of aspirin; Z79.899 Other long term (current) drug therapy; Z91.81 History of falling; Z95.5 Presence of coronary angioplasty implant and graft; Z96.653 Presence of artificial knee joint, bilateral; Z68.39 Body mass index [BMI] 39.0-39.9, adult; Z98.890 Other specified postprocedural states; Z98.84 Bariatric surgery status; W18.2XXA Fall in (into) shower or empty bathtub, initial encounter; Y93.E1 Activity, personal bathing and showering; Y92.091 Bathroom in other non-institutional residence as the place of occurrence of the external cause; Y99.8 Other external cause status
CPT/HCPCS: 36415 ×3; 70450; 71045; 71275; 72133; 73560; 80048 ×2; 80053; 80061; 81001; 82550 ×3; 82948 ×5; 83036; 83735; 83874 ×3; 83880; 84100; 84443; 84484 ×4; 85025 ×2; 85378; 85610; 85730; 93005; 93880; 93970; 96361 ×3; 96374; 96376; 97039; 97161; 99285; G0378 ×57; G8978; G8979; G8980; G8981; G8982; G8983; J0696 ×2; J1815 ×3; J7120; Q9967 ×2

== ENCOUNTER 2021-04-18 09:00 | Inpatient (IN) | payer MEDICARE ==
[~2021-04-18] VITALS: Ht 165.1 cm; Wt 106.4 kg
[~2021-04-18 09:00] MED LIST changes: -ASPI-556 PO; +BIOT10005 PO; -CLOP75TA14 PO; +MAGN400T40 PO; -NITR0.4T50 SL; -ROSU5TAB PO; +SEMA1PEN3 SQ; -TELM40TA8 PO
[2021-04-18 12:30] LABS: BASOPHILS % (AUTO) 0.5 % (0.0-5.0); EOSINOPHILS % (AUTO) 1.9 % (0.0-8.0); LYMPHOCYTES % (AUTO) 18.6 % (21.0-51.0); MEAN CORPUSCULAR HEMOGLOBIN 31.5 pg (27.0-33.0); MEAN CORPUSCULAR HGB CONC 31.9 g/dL (32.0-36.0); MEAN CORPUSCULAR VOLUME 98.9 fL (79-99); MONOCYTES % (AUTO) 8.4 % (3.0-13.0); NEUTROPHILS % (AUTO) 70.1 % (40.0-77.0); PLATELET COUNT (AUTO) 260 K/uL (130-400); RED BLOOD CELL COUNT(AUTO) 4.35 MIL/uL (4.00-5.50); RED CELL DISTRIBUTION WIDTH 12.9 % (11.0-15.5); WHITE BLOOD COUNT (AUTO) 8.1 K/uL (4.8-10.8)
[2021-04-18 12:41] LABS: CREATININE 0.8 mg/dL (0.5-1.5); POTASSIUM 4.2 mmol/L (3.5-5.1)
[2021-04-18 12:43] LABS: INR 1.04 (0.85-1.15); PROTHROMBIN TIME 11.3 SEC (9.6-11.6)
[2021-04-21 14:52] VITALS: BP 161/75
[2021-04-21] MEDS ORDERED: ASPI-1012 PO (15:16)
[2021-04-21] MEDS ORDERED: OMEGA 3 PO (15:16)
[2021-04-21] MEDS ORDERED: PANT20TA18 PO (15:16)
[2021-04-21] MEDS ORDERED: TELM40 PO (15:16)
[2021-04-22] MEDS ORDERED: CEFAZOLIN SODIUM 1 GM VIAL IVP ONE (08:00)
[2021-04-22 08:06] VITALS: BP 152/99
[2021-04-22] MEDS ORDERED: 0.9%NACL 1000ML 1,000 ML IV ONE (08:08)
[2021-04-22 10:53] VITALS: BP 138/67
[2021-04-22] MEDS ORDERED: ONDANSETRON 4MG INJ IVP PRN (11:30)
[2021-04-22] MEDS ORDERED: HYDROMORPHONE 1 MG INJ IVP PRN (11:30)
[2021-04-22] MEDS ORDERED: ACETAMINOPHEN 325 MG TAB PO PRN (11:30)
[2021-04-22 12:05] LABS: APPEARANCE,URINE Clear (CLEAR); BILIRUBIN,URINE Negative (NEGATIVE); COLOR,URINE Yellow (YELLOW); GLUCOSE, URINE (UA) Negative (NEGATIVE); KETONES,URINE Negative (NEGATIVE); LEUKOCYTE ESTERASE ,URINE Small (NEGATIVE); NITRATE,URINE Negative (NEGATIVE); OCCULT BLOOD,URINE Negative (NEGATIVE); PROTEIN,URINE Negative (NEGATIVE)
[2021-04-22 12:14] LABS: BACTERIA,URINE Rare /HPF (None Seen); RBC,URINE 0-1 /HPF (0-1)
[2021-04-22 12:25] LABS: HEMATOCRIT 38.8 % (36-48); MEAN CORPUSCULAR HEMOGLOBIN 31.8 pg (27.0-33.0); MEAN CORPUSCULAR HGB CONC 32.2 g/dL (32.0-36.0); MEAN CORPUSCULAR VOLUME 98.7 fL (79-99); RED BLOOD CELL COUNT(AUTO) 3.93 MIL/uL (4.00-5.50); RED CELL DISTRIBUTION WIDTH 12.8 % (11.0-15.5); WHITE BLOOD COUNT (AUTO) 6.3 K/uL (4.8-10.8)
[2021-04-22 12:36] LABS: INR 1.06 (0.85-1.15); PROTHROMBIN TIME 11.5 SEC (9.6-11.6)
[2021-04-22 12:37] LABS: PARTIAL THROMBOPLASTIN TIME 25.5 SEC (26.3-35.5)
[2021-04-22 12:39] LABS: ALBUMIN 3.3 g/dL (3.5-5.0); BILIRUBIN,TOTAL 0.5 mg/dL (0.2-1.0); CREATININE 0.8 mg/dL (0.5-1.5); POTASSIUM 4.5 mmol/L (3.5-5.1); TOTAL PROTEIN, SERUM 6.9 g/dL (6.0-8.3)
[2021-04-22 12:45] VITALS: BP 130/63
[2021-04-22] MEDS ORDERED: DIATR MEGLU/DIATRIZOATE SODIUM 30 ML BOTTLE ONE (13:50)
[2021-04-22] MEDS ORDERED: IOHEXOL 350 MG/ML 100ML INFUS..BTL IV ONE (16:00)
[2021-04-22] MEDS: INSULIN HUMULIN R 100 UNIT/ML 3ML SQ SCH ×2 (16:30→20:54)
[2021-04-22] MEDS ORDERED: LIDOCAINE 5% TOPICAL PATCH TP ONE (16:30)
[2021-04-22 16:55] VITALS: BP 177/85
[2021-04-22] MEDS: CEFTRIAXONE 1G VIAL IVP SCH (17:24)
[2021-04-22 19:20] VITALS: BP 117/54
[2021-04-22] MEDS: MAGNESIUM OXIDE 400 MG TABLET PO SCH (20:44)
[2021-04-22] MEDS: BIOTIN 10000 MCG PO SCH (20:45)
[2021-04-22] MEDS ORDERED: NON-FORMULARY MEDICATION 1 EACH (Magnesium Oxide (Magnesium) 400 MG) PO SCH (21:00)
[2021-04-22] MEDS: 0.9%NACL 1000ML 1,000 ML IV SCH (22:55)
[2021-04-22 22:56] VITALS: BP 128/59
[2021-04-23] MEDS: 0.9%NACL 1000ML 1,000 ML IV SCH ×2 (00:24→13:29)
[2021-04-23 03:08] VITALS: BP 121/65
[2021-04-23 07:14] VITALS: BP 125/66
[2021-04-23] MEDS: INSULIN HUMULIN R 100 UNIT/ML 3ML SQ SCH ×4 (07:30→21:00)
[2021-04-23 07:36] LABS: BASOPHILS % (AUTO) 0.6 % (0.0-5.0); EOSINOPHILS % (AUTO) 3.4 % (0.0-8.0); HEMATOCRIT 38.5 % (36-48); LYMPHOCYTES % (AUTO) 29.8 % (21.0-51.0); MEAN CORPUSCULAR HGB CONC 33.2 g/dL (32.0-36.0); MEAN CORPUSCULAR VOLUME 96.3 fL (79-99); MONOCYTES % (AUTO) 9.9 % (3.0-13.0); NEUTROPHILS % (AUTO) 55.7 % (40.0-77.0); PLATELET COUNT (AUTO) 244 K/uL (130-400); RED CELL DISTRIBUTION WIDTH 12.8 % (11.0-15.5)
[2021-04-23 07:43] LABS: CARBON DIOXIDE 28 mmol/L (21-32); CHLORIDE 105 mmol/L (101-111); CREATININE 0.8 mg/dL (0.5-1.5); GLOMERULAR FILTR. RATE CALC 74 mL/min (>60); GLUCOSE,RANDOM 131 mg/dL (70-105); POTASSIUM 4.3 mmol/L (3.5-5.1); SODIUM SERUM 141 mmol/L (136-145); UREA NITROGEN, BLOOD 10 mg/dL (7-18)
[2021-04-23 08:07] LABS: CRP QUANTITATIVE < 2.00 mg/L (0.00-9.0)
[2021-04-23] MEDS ORDERED: NON-FORMULARY MEDICATION 1 EACH (Pantoprazole Sodium 20 MG) PO SCH (09:00)
[2021-04-23] MEDS ORDERED: PANTOPRAZOLE 40 MG/VIAL IVP SCH (09:00)
[2021-04-23] MEDS ORDERED: OMEGA PO SCH (09:00)
[2021-04-23] MEDS: PANTOPRAZOLE 40 MG TAB DR PO SCH (09:10)
[2021-04-23] MEDS: FISH OIL 1000 MG/CAP PO SCH (09:10)
[2021-04-23] MEDS: ENOXAPARIN SODIUM 40 MG/0.4 ML SYRINGE SQ SCH (09:13)
[2021-04-23 11:18] VITALS: BP 133/88
[2021-04-23 15:57] VITALS: BP 127/72
[2021-04-23] MEDS ORDERED: PHARMACY COMMUNICATION MISC SCH (16:00)
[2021-04-23] MEDS: CEFTRIAXONE 1G VIAL IVP SCH (17:41)
[2021-04-23 19:36] VITALS: BP 124/57
[2021-04-23] MEDS: MAGNESIUM OXIDE 400 MG TABLET PO SCH (21:24)
[2021-04-23] MEDS: BIOTIN 10000 MCG PO SCH (21:28)
[2021-04-23 22:45] VITALS: BP 111/59
[2021-04-24] VITALS (23 sets, daily range): BP systolic 118–165; BP diastolic 61–84
[2021-04-24] MEDS: 0.9%NACL 1000ML 1,000 ML IV SCH ×3 (02:43→22:57)
[2021-04-24 04:45] LABS: BASOPHILS % (AUTO) 0.9 % (0.0-5.0); EOSINOPHILS % (AUTO) 3.7 % (0.0-8.0); LYMPHOCYTES % (AUTO) 32.9 % (21.0-51.0); MEAN CORPUSCULAR HEMOGLOBIN 32.2 pg (27.0-33.0); MEAN CORPUSCULAR HGB CONC 31.8 g/dL (32.0-36.0); MEAN CORPUSCULAR VOLUME 101.1 fL (79-99); MONOCYTES % (AUTO) 10.7 % (3.0-13.0); NEUTROPHILS % (AUTO) 51.1 % (40.0-77.0); PLATELET COUNT (AUTO) 215 K/uL (130-400); RED BLOOD CELL COUNT(AUTO) 3.76 MIL/uL (4.00-5.50); RED CELL DISTRIBUTION WIDTH 12.7 % (11.0-15.5); WHITE BLOOD COUNT (AUTO) 4.6 K/uL (4.8-10.8)
[2021-04-24 06:02] LABS: CREATININE 0.8 mg/dL (0.5-1.5)
[2021-04-24] MEDS: INSULIN HUMULIN R 100 UNIT/ML 3ML SQ SCH ×4 (07:30→21:37)
[2021-04-24] MEDS: FISH OIL 1000 MG/CAP PO SCH (09:00)
[2021-04-24] MEDS: ENOXAPARIN SODIUM 40 MG/0.4 ML SYRINGE SQ SCH (09:00)
[2021-04-24] MEDS: PANTOPRAZOLE 40 MG TAB DR PO SCH (09:00)
[2021-04-24] MEDS ORDERED: GLYCOPYRROLATE 1 MG/5 ML SYRINGE ONE (10:21)
[2021-04-24] MEDS ORDERED: LIDOCAINE PF 100MG/5ML (2%) SYRINGE 5ML ONE (10:21)
[2021-04-24] MEDS ORDERED: DEXAMETHASONE SOD PHOSPHATE 10MG/ML 1ML VIAL ONE (10:21)
[2021-04-24] MEDS ORDERED: ONDANSETRON 4MG INJ ONE (10:21)
[2021-04-24] MEDS ORDERED: PROPOFOL 10 MG/ML 20ML VIAL IV ONE (10:21)
[2021-04-24] MEDS ORDERED: SUCCINYLCHOLINE CHLORIDE 20 MG/ML 10 ML VIAL ONE (10:21)
[2021-04-24] MEDS ORDERED: MIDAZOLAM HCL 1 MG/ML 2ML VIAL ONE (10:22)
[2021-04-24] MEDS ORDERED: NEOSTIGMINE 5MG/5ML SYR IV ONE (10:22)
[2021-04-24] MEDS ORDERED: FENTANYL CITRATE PF 50 MCG/1 ML 2ML VIAL ONE (10:22)
[2021-04-24] MEDS ORDERED: ROCURONIUM 10MG/1ML SYR 10 MG/ML ML ONE (10:23)
[2021-04-24] MEDS ORDERED: LIDOCAINE HCL 2% JELLY 5 ML ONE (11:09)
[2021-04-24] MEDS ORDERED: CEFAZOLIN SODIUM 1 GM VIAL ONE (11:50)
[2021-04-24] MEDS ORDERED: BUPIVACAINE/PF 0.5% 30ML VIAL ONE (12:46)
[2021-04-24] MEDS ORDERED: NEOMY SULF/BACITRAC ZN/POLY OINT 30GM TUBE TP ONE (12:55)
[2021-04-24] MEDS ORDERED: MEPERIDINE-PF 25 MG/ML SYG ONE ×2 (13:19→13:32)
[2021-04-24] MEDS: CEFTRIAXONE 1G VIAL IVP SCH (18:14)
[2021-04-24] MEDS: KETOROLAC 30MG VIAL (30MG/ML) IV PRN (19:01)
[2021-04-24] MEDS: BIOTIN 10000 MCG PO SCH (21:00)
[2021-04-24] MEDS: MAGNESIUM OXIDE 400 MG TABLET PO SCH (21:14)
[2021-04-25 03:03] VITALS: BP 113/57
[2021-04-25 06:49] LABS: BASOPHILS % (AUTO) 0.2 % (0.0-5.0); EOSINOPHILS % (AUTO) 0.3 % (0.0-8.0); LYMPHOCYTES % (AUTO) 8.3 % (21.0-51.0); MEAN CORPUSCULAR HEMOGLOBIN 31.7 pg (27.0-33.0); MEAN CORPUSCULAR HGB CONC 33.3 g/dL (32.0-36.0); MEAN CORPUSCULAR VOLUME 95.5 fL (79-99); MONOCYTES % (AUTO) 7.7 % (3.0-13.0); NEUTROPHILS % (AUTO) 83.1 % (40.0-77.0); PLATELET COUNT (AUTO) 263 K/uL (130-400); RED BLOOD CELL COUNT(AUTO) 4.19 MIL/uL (4.00-5.50); RED CELL DISTRIBUTION WIDTH 12.4 % (11.0-15.5); WHITE BLOOD COUNT (AUTO) 11.8 K/uL (4.8-10.8)
[2021-04-25 07:00] LABS: CREATININE 0.9 mg/dL (0.5-1.5); POTASSIUM 4.9 mmol/L (3.5-5.1)
[2021-04-25] MEDS: INSULIN HUMULIN R 100 UNIT/ML 3ML SQ SCH ×4 (07:30→21:00)
[2021-04-25 08:00] VITALS: BP 145/73
[2021-04-25] MEDS: FISH OIL 1000 MG/CAP PO SCH (09:17)
[2021-04-25] MEDS: PANTOPRAZOLE 40 MG TAB DR PO SCH (09:17)
[2021-04-25] MEDS: ENOXAPARIN SODIUM 40 MG/0.4 ML SYRINGE SQ SCH (09:18)
[2021-04-25 11:42] VITALS: BP 138/64
[2021-04-25] MEDS: KETOROLAC 30MG VIAL (30MG/ML) IV PRN (16:19)
[2021-04-25 16:53] VITALS: BP 139/68
[2021-04-25] MEDS: CEFTRIAXONE 1G VIAL IVP SCH (17:39)
[2021-04-25 19:23] VITALS: BP 117/57
[2021-04-25] MEDS: MAGNESIUM OXIDE 400 MG TABLET PO SCH (21:32)
[2021-04-25] MEDS: BIOTIN 10000 MCG PO SCH (21:34)
[2021-04-25 23:07] VITALS: BP 140/62
[2021-04-26 03:05] VITALS: BP 125/63
[2021-04-26 07:04] VITALS: BP 137/64
[2021-04-26 07:21] LABS: HEMATOCRIT 37.4 % (36-48); MEAN CORPUSCULAR HEMOGLOBIN 31.6 pg (27.0-33.0); MEAN CORPUSCULAR HGB CONC 32.1 g/dL (32.0-36.0); MEAN CORPUSCULAR VOLUME 98.4 fL (79-99); RED BLOOD CELL COUNT(AUTO) 3.8 MIL/uL (4.00-5.50); WHITE BLOOD COUNT (AUTO) 7.9 K/uL (4.8-10.8)
[2021-04-26] MEDS: INSULIN HUMULIN R 100 UNIT/ML 3ML SQ SCH ×2 (07:30→11:30)
[2021-04-26 07:35] LABS: ALBUMIN 3.2 g/dL (3.5-5.0); BILIRUBIN,TOTAL 0.5 mg/dL (0.2-1.0); POTASSIUM 4.5 mmol/L (3.5-5.1); TOTAL PROTEIN, SERUM 6.8 g/dL (6.0-8.3)
[2021-04-26] MEDS: FISH OIL 1000 MG/CAP PO SCH (09:04)
[2021-04-26] MEDS: PANTOPRAZOLE 40 MG TAB DR PO SCH (09:04)
[2021-04-26] MEDS: ENOXAPARIN SODIUM 40 MG/0.4 ML SYRINGE SQ SCH (09:05)
[2021-04-26 11:03] VITALS: BP 120/60
== END 2021-04-26 12:25 | DRG 355 ==
LOC: EDSTATUS 09:00 → PREINTOOBSV 16:23 → OBSVTOIN 04-22 06:30 → DAHIP 04-22 06:30 → WSH 04-22 10:50
PROVIDERS: ADMIT Surgery; ATTEND Surgery
PROC: 0WPF0JZ Removal of Synthetic Substitute from Abdominal Wall, Open Approach (ICD-10-PCS; 2021-04-24)
PROC: 0WUF0JZ Supplement Abdominal Wall with Synthetic Substitute, Open Approach (ICD-10-PCS; principal; 2021-04-24 11:28)
DX: K43.0 Incisional hernia with obstruction, without gangrene (principal); I25.10 Atherosclerotic heart disease of native coronary artery without angina pectoris; I10 Essential (primary) hypertension; E11.9 Type 2 diabetes mellitus without complications; Z20.822 Contact with and (suspected) exposure to COVID-19; E78.5 Hyperlipidemia, unspecified; E66.01 Morbid (severe) obesity due to excess calories; K57.30 Diverticulosis of large intestine without perforation or abscess without bleeding; K76.0 Fatty (change of) liver, not elsewhere classified; Z53.9 Procedure and treatment not carried out, unspecified reason; Z68.39 Body mass index [BMI] 39.0-39.9, adult; Z88.5 Allergy status to narcotic agent; Z88.8 Allergy status to other drugs, medicaments and biological substances; Z91.048 Other nonmedicinal substance allergy status; Z95.5 Presence of coronary angioplasty implant and graft; Z87.442 Personal history of urinary calculi; Z91.81 History of falling; Z82.3 Family history of stroke; Z83.3 Family history of diabetes mellitus; Z80.9 Family history of malignant neoplasm, unspecified; Z82.49 Family history of ischemic heart disease and other diseases of the circulatory system
CPT/HCPCS: 36415; 71100; 74178; 80048; 80053; 81001; 82948; 84145; 85025; 85027; 85610; 85730; 86140; 87088; 87635; 93005; 97039; C1781; C9113; C9803; G0378; J0330; J0690; J0696; J1100; J1650; J1815; J1885; J2001; J2175; J2250; J2405; J2704; J2710; J3010; J3490; J7030; Q9963; Q9967

== ENCOUNTER → 2021-11-20 | Outpatient (CLI) | payer MEDICARE ==
[~2021-11-20] MED LIST changes: +OMEGA 3 PO; +PANT20TA18 PO; +TELM40 PO
== END | disposition home or self-care (01) ==
LOC: SHCH 13:26
PROVIDERS: ATTEND Internal Medicine Cardiovascular Disease
DX: I35.0 Nonrheumatic aortic (valve) stenosis (principal); I11.9 Hypertensive heart disease without heart failure; E78.5 Hyperlipidemia, unspecified; E11.9 Type 2 diabetes mellitus without complications; E66.9 Obesity, unspecified
CPT/HCPCS: 93306; 93925

== ENCOUNTER → 2021-11-21 | Outpatient (CLI) | payer MEDICARE ==
[~2021-11-21] MED LIST changes: +REGADENOSON 0.4 MG/5 ML PF SYG IVP SCH
== END | disposition home or self-care (01) ==
LOC: SHCH 08:21
PROVIDERS: ATTEND Internal Medicine Cardiovascular Disease
DX: R07.89 Other chest pain (principal); R06.02 Shortness of breath; E78.5 Hyperlipidemia, unspecified; Z95.5 Presence of coronary angioplasty implant and graft
CPT/HCPCS: 78452; 93017; 96374; A9500 ×2; J2785

== ENCOUNTER 2022-01-09 05:54 | Observation (INO) | payer MEDICARE ==
[2022-01-07 10:15] VITALS: BP 163/83
[2022-01-07 10:55] LABS: APPEARANCE,URINE Cloudy (CLEAR); BILIRUBIN,URINE Negative (NEGATIVE); COLOR,URINE Yellow (YELLOW); EOSINOPHILS % (AUTO) 3.6 % (0.0-8.0); GLUCOSE, URINE (UA) Negative (NEGATIVE); HEMATOCRIT 42.1 % (36-48); KETONES,URINE Negative (NEGATIVE); LEUKOCYTE ESTERASE ,URINE Trace (NEGATIVE); LYMPHOCYTES % (AUTO) 28.9 % (21.0-51.0); MEAN CORPUSCULAR HEMOGLOBIN 30.9 pg (27.0-33.0); MEAN CORPUSCULAR HGB CONC 32.3 g/dL (32.0-36.0); MEAN CORPUSCULAR VOLUME 95.7 fL (79-99); MONOCYTES % (AUTO) 9.8 % (3.0-13.0); NEUTROPHILS % (AUTO) 56.2 % (40.0-77.0); NITRATE,URINE Negative (NEGATIVE); OCCULT BLOOD,URINE Negative (NEGATIVE); PH,URINE 5.5 (5.0-8.0); PLATELET COUNT (AUTO) 233 K/uL (130-400); PROTEIN,URINE Negative (NEGATIVE); UROBILINOGEN,URINE 0.2 mg/dL (0.2-1.0); WHITE BLOOD COUNT (AUTO) 5.9 K/uL (4.8-10.8)
[2022-01-07 11:07] LABS: CREATININE 0.9 mg/dL (0.5-1.5); POTASSIUM 4.7 mmol/L (3.5-5.1)
[2022-01-07 11:23] LABS: B-TYPE NATRIURETIC PEPTIDE 31 pg/mL (0-100)
[2022-01-07 11:37] LABS: BACTERIA,URINE Few /HPF (None Seen); RBC,URINE 0-1 /HPF (0-1)
[2022-01-07 11:42] LABS: INR 1.01 (0.85-1.15)
[2022-01-07 11:43] LABS: PARTIAL THROMBOPLASTIN TIME 27.9 SEC (26.3-35.5)
[~2022-01-09] VITALS: Ht 165.1 cm; Wt 105.6 kg
[2022-01-09] VITALS (14 sets, daily range): BP systolic 101–153; BP diastolic 55–85
[~2022-01-09 05:54] MED LIST changes: +0.9% NACL 500ML IV.SOLN 500 ML IV SCH; +ASPI-1012 PO; -BIOT10005 PO; -REGADENOSON 0.4 MG/5 ML PF SYG IVP SCH
[2022-01-09] MEDS ORDERED: 0.9%NACL 1000ML 1,000 ML IV ONE (07:05)
[2022-01-09] MEDS ORDERED: IOHEXOL-350 50ML VIAL IV ONE (09:01)
[2022-01-09] MEDS ORDERED: SODIUM BICARB 50MEQ 50ML VIAL 50 ML ONE (09:01)
[2022-01-09] MEDS ORDERED: NITROGLYCERIN 50MG VIAL ONE (09:01)
[2022-01-09] MEDS ORDERED: IOHEXOL-350 75 ML VIAL IV ONE (09:01)
[2022-01-09] MEDS ORDERED: HEPARIN 10,000 UNIT/10ML (1,000 UNIT/ML) VIAL ONE (09:01)
[2022-01-09] MEDS ORDERED: MIDAZOLAM HCL 1 MG/ML 2ML VIAL ONE (09:02)
[2022-01-09] MEDS ORDERED: LIDOCAINE HCL 400MG/20ML VIAL ONE (09:02)
[2022-01-09] MEDS ORDERED: MEPERIDINE-PF 25 MG/ML SYG ONE (09:02)
[2022-01-09] MEDS ORDERED: ATROPINE 1MG SYG IVP ONE (09:34)
[2022-01-09] MEDS ORDERED: 0.9%NACL 1000ML 1,000 ML IV SCH (10:00)
[2022-01-09] MEDS ORDERED: DEXTROSE 50%-WATER 50 ML DISP.SYRIN IV PRN (10:00)
[2022-01-09] MEDS: INSULIN HUMULIN R 100 UNIT/ML 3ML SQ SCH ×3 (11:30→21:00)
[2022-01-09] MEDS: MAGNESIUM OXIDE 400 MG TABLET PO SCH ×2 (20:56→21:01)
[2022-01-09] MEDS ORDERED: NON-FORMULARY MEDICATION 1 EACH (Magnesium Oxide (Magnesium) 400 MG) PO SCH (21:00)
[2022-01-10 03:55] VITALS: BP 139/61
[2022-01-10 06:33] VITALS: BP 124/63
[2022-01-10] MEDS: INSULIN HUMULIN R 100 UNIT/ML 3ML SQ SCH ×2 (06:52→11:30)
[2022-01-10] MEDS ORDERED: ASPIRIN 325MG TAB PO SCH (09:00)
[2022-01-10] MEDS ORDERED: NON-FORMULARY MEDICATION 1 EACH (Pantoprazole Sodium 20 MG) PO SCH (09:00)
[2022-01-10] MEDS ORDERED: OMEGA PO SCH (09:00)
[2022-01-10] MEDS ORDERED: ASPIRIN 325 MG PO SCH (09:00)
[2022-01-10] MEDS ORDERED: PANTOPRAZOLE 40 MG TAB DR PO SCH (09:00)
[2022-01-10 11:00] VITALS: BP 120/62
== END 2022-01-10 14:48 | disposition home or self-care (01) ==
LOC: DAH 05:54 → DAHIP 05:55 → 2DH 16:45
PROVIDERS: ADMIT Internal Medicine Cardiovascular Disease; ATTEND Internal Medicine Cardiovascular Disease
DX: I25.119 Atherosclerotic heart disease of native coronary artery with unspecified angina pectoris (principal); I11.0 Hypertensive heart disease with heart failure; I50.9 Heart failure, unspecified; E11.9 Type 2 diabetes mellitus without complications; E78.00 Pure hypercholesterolemia, unspecified; I45.10 Unspecified right bundle-branch block; G47.33 Obstructive sleep apnea (adult) (pediatric); I65.29 Occlusion and stenosis of unspecified carotid artery; Z79.899 Other long term (current) drug therapy
CPT/HCPCS: 36415; 71045; 80048; 81001; 82948 ×6; 83880; 85025; 85610; 85730; 93005; 93458; A4215; A4216; A4221; A4222; A4223 ×3; A4606; A4663; C1760; C1894; G0378 ×27; J1644; J1815; J2175; J2250; J3490 ×3; J7030; Q9967; 99156; J0461

== ENCOUNTER 2022-02-15 14:01 | Emergency (ER) | payer MEDICARE ==
[~2022-02-15] VITALS: Ht 165.1 cm; Wt 106.2 kg
[~2022-02-15 14:01] MED LIST changes: -0.9% NACL 500ML IV.SOLN 500 ML IV SCH
[2022-02-15 15:00] LABS: APPEARANCE,URINE CLEAR (CLEAR); BILIRUBIN,URINE NEGATIVE (NEGATIVE); COLOR,URINE YELLOW (YELLOW); GLUCOSE, URINE (UA) NEGATIVE (NEGATIVE); KETONES,URINE NEGATIVE (NEGATIVE); LEUKOCYTE ESTERASE ,URINE TRACE (NEGATIVE); NITRATE,URINE NEGATIVE (NEGATIVE); OCCULT BLOOD,URINE NEGATIVE (NEGATIVE); PH,URINE 5.5 (5.0-8.0); PROTEIN,URINE NEGATIVE (NEGATIVE); UROBILINOGEN,URINE 0.2 mg/dL (0.2-1.0)
[2022-02-15 15:09] LABS: BACTERIA,URINE Few /HPF (None Seen); MUCUS,URINE Few LPF (None Seen); SQUAMOUS EPITHELIAL CELL,UR Moderate /HPF (0-2)
[2022-02-15 15:22] LABS: BASOPHILS % (AUTO) 0.6 % (0.0-5.0); EOSINOPHILS % (AUTO) 3.1 % (0.0-8.0); HEMATOCRIT 39.3 % (36-48); LYMPHOCYTES % (AUTO) 25.9 % (21.0-51.0); MEAN CORPUSCULAR HEMOGLOBIN 31.3 pg (27.0-33.0); MEAN CORPUSCULAR HGB CONC 33.6 g/dL (32.0-36.0); MEAN CORPUSCULAR VOLUME 93.1 fL (79-99); MONOCYTES % (AUTO) 9.1 % (3.0-13.0); NEUTROPHILS % (AUTO) 60.7 % (40.0-77.0); PLATELET COUNT (AUTO) 218 K/uL (130-400); RED BLOOD CELL COUNT(AUTO) 4.22 MIL/uL (4.00-5.50); RED CELL DISTRIBUTION WIDTH 13.3 % (11.0-15.5); WHITE BLOOD COUNT (AUTO) 6.7 K/uL (4.8-10.8)
[2022-02-15 15:48] LABS: CREATININE 0.7 mg/dL (0.5-1.5)
[2022-02-15 15:51] LABS: ALBUMIN 3.7 g/dL (3.5-5.0); TOTAL PROTEIN, SERUM 7.5 g/dL (6.0-8.3)
[2022-02-15] MEDS ORDERED: NAPR-1180 PO (17:06)
[2022-02-15] MEDS ORDERED: CYCL10TA16 PO (17:06)
[2022-02-15 17:58] VITALS: BP 145/68
[2022-02-15] MEDS ORDERED: LIDOCAINE 5% TOPICAL PATCH TP ONE (18:00)
== END 2022-02-15 18:14 | disposition home or self-care (01) ==
LOC: EDH 14:01
DX: K57.30 Diverticulosis of large intestine without perforation or abscess without bleeding (principal); E66.01 Morbid (severe) obesity due to excess calories; Z68.39 Body mass index [BMI] 39.0-39.9, adult; I25.10 Atherosclerotic heart disease of native coronary artery without angina pectoris; E11.9 Type 2 diabetes mellitus without complications; I10 Essential (primary) hypertension; Z88.8 Allergy status to other drugs, medicaments and biological substances; Z88.1 Allergy status to other antibiotic agents; Z88.6 Allergy status to analgesic agent; Z79.899 Other long term (current) drug therapy; Z79.82 Long term (current) use of aspirin; Z90.89 Acquired absence of other organs; Z98.890 Other specified postprocedural states
CPT/HCPCS: 36415; 51702; 74176; 80053; 81001; 85025; 87040

== ENCOUNTER → 2022-04-22 | Outpatient (CLI) | payer MEDICARE ==
[~2022-04-22] MED LIST changes: +CYCL10TA16 PO; +NAPR-1180 PO
== END | disposition home or self-care (01) ==
LOC: RAH 07:35
PROVIDERS: ATTEND Family Medicine
DX: R92.8 Other abnormal and inconclusive findings on diagnostic imaging of breast (principal); N63.10 Unspecified lump in the right breast, unspecified quadrant
CPT/HCPCS: 77066

== ENCOUNTER → 2022-09-15 | Outpatient (CLI) | payer MEDICARE | END | disposition home or self-care (01) | LOC: SHCH 11:13 | PROVIDERS: ATTEND Internal Medicine Cardiovascular Disease | DX: I65.23 Occlusion and stenosis of bilateral carotid arteries (principal) | CPT/HCPCS: 93880 ==

== ENCOUNTER → 2022-10-16 | Outpatient (CLI) | payer MEDICARE | END | disposition home or self-care (01) | LOC: LAB 09:32 | PROVIDERS: ATTEND Family Medicine | DX: M19.072 Primary osteoarthritis, left ankle and foot (principal); M79.672 Pain in left foot; M25.572 Pain in left ankle and joints of left foot | CPT/HCPCS: 73600; 73620 ==

== ENCOUNTER → 2023-01-14 | Outpatient (CLI) | payer MEDICARE | END | disposition home or self-care (01) | LOC: RAH 09:54 | PROVIDERS: ATTEND Family Medicine | DX: R74.8 Abnormal levels of other serum enzymes (principal) | CPT/HCPCS: 76700 ==

== ENCOUNTER → 2023-09-14 | Outpatient (CLI) | payer MEDICARE | END | disposition home or self-care (01) | LOC: SHCH 08:38 | PROVIDERS: ATTEND Internal Medicine Cardiovascular Disease | DX: I35.0 Nonrheumatic aortic (valve) stenosis (principal); I65.23 Occlusion and stenosis of bilateral carotid arteries | CPT/HCPCS: 93306; 93880 ==

== ENCOUNTER 2023-11-08 05:38 | Day surgery (SDC) | payer MEDICARE ==
[2023-11-05 11:31] VITALS: BP 140/63; PULSE 55; RESP 18
[2023-11-05 11:53] LABS: APPEARANCE,URINE TURBID (CLEAR); BILIRUBIN,URINE NEGATIVE (NEGATIVE); COLOR,URINE YELLOW (YELLOW); GLUCOSE, URINE (UA) NEGATIVE (NEGATIVE); KETONES,URINE NEGATIVE (NEGATIVE); LEUKOCYTE ESTERASE ,URINE 500 Leu/uL (NEGATIVE); NITRATE,URINE NEGATIVE (NEGATIVE); OCCULT BLOOD,URINE MODERATE (NEGATIVE); PH,URINE 5.5 (5.0-8.0); PROTEIN,URINE 30 mg/dL (NEGATIVE); UROBILINOGEN,URINE 0.2 mg/dL (0.2-1.0)
[2023-11-05 11:54] LABS: ADD UA MICROSCOPIC YES
[2023-11-05 11:59] LABS: BASOPHILS # (AUTO) 0.05 K/uL (0.00-0.20); BASOPHILS % (AUTO) 0.8 % (0.0-5.0); EOSINOPHILS # (AUTO) 0.19 K/uL (0.00-0.70); EOSINOPHILS % (AUTO) 3.1 % (0.0-8.0); HEMATOCRIT 43.8 % (36-48); IMMATURE GRANULOCYTE ABSOLUTE 0.02 K/uL (0-1); LYMPHOCYTES # (AUTO) 1.8 K/uL (1.0-4.8); LYMPHOCYTES % (AUTO) 29.9 % (21.0-51.0); MEAN CORPUSCULAR HEMOGLOBIN 32.2 pg (27.0-33.0); MEAN CORPUSCULAR HGB CONC 33.8 g/dL (32.0-36.0); MEAN CORPUSCULAR VOLUME 95.4 fL (79-99); MONOCYTES # (AUTO) 0.6 K/uL (0.1-1.0); MONOCYTES % (AUTO) 10.2 % (3.0-13.0); NEUTROPHILS # (AUTO) 3.4 K/uL (1.8-7.7); NEUTROPHILS % (AUTO) 55.7 % (40.0-77.0); PLATELET COUNT (AUTO) 220 K/uL (130-400); RED BLOOD CELL COUNT(AUTO) 4.59 MIL/uL (4.00-5.50); RED CELL DISTRIBUTION WIDTH 13.3 % (11.0-15.5); WHITE BLOOD COUNT (AUTO) 6.1 K/uL (4.8-10.8)
[2023-11-05 12:07] LABS: BACTERIA,URINE FEW /HPF (None Seen); MUCUS,URINE RARE LPF (None Seen); RBC,URINE 26-50 /HPF (0-1); SQUAMOUS EPITHELIAL CELL,UR MANY /HPF (0-2); TRANSITIONAL EPI CELLS,URINE FEW /HPF (None Seen); WBC CLUMP FEW /HPF (0-1); WBC,URINE TNTC /HPF (0-1)
[2023-11-05 12:09] LABS: PARTIAL THROMBOPLASTIN TIME 29.8 SEC (26.3-35.5)
[2023-11-05 12:13] LABS: CREATININE 0.8 mg/dL (0.5-1.0); POTASSIUM 4.7 mmol/L (3.5-5.1)
[2023-11-05 12:31] LABS: B-TYPE NATRIURETIC PEPTIDE 37 pg/mL (0-100)
[2023-11-05 12:43] LABS: INR 0.96 (0.85-1.15); PROTHROMBIN TIME 11.4 SEC (9.6-11.6)
[2023-11-08] VITALS (12 sets, daily range): BP systolic 133–169; BP diastolic 53–70; PULSE 47–64; RESP 13–19
[~2023-11-08] VITALS: Ht 165.1 cm; Wt 104.2 kg
[~2023-11-08 05:38] MED LIST changes: +BIOT10005 PO; +CEPH500C2 PO; -CYCL10TA16 PO; +DOXY100C5 PO; -NAPR-1180 PO; +TOBROO OP
[2023-11-08] MEDS: 0.9%NACL 1000ML 1,000 ML IV ONE (06:37)
[2023-11-08] MEDS ORDERED: MEPERIDINE-PF 25 MG/ML SYG ONE (07:31)
[2023-11-08] MEDS ORDERED: LIDOCAINE HCL 400MG/20ML VIAL ONE (07:31)
[2023-11-08] MEDS ORDERED: SODIUM BICARB 50MEQ 50ML VIAL 50 ML ONE (07:31)
[2023-11-08] MEDS ORDERED: IOHEXOL-350 50ML VIAL IV ONE (07:32)
[2023-11-08] MEDS ORDERED: NITROGLYCERIN 50MG VIAL ONE (07:32)
[2023-11-08] MEDS ORDERED: MIDAZOLAM HCL 1 MG/ML 2ML VIAL ONE (07:32)
[2023-11-08] MEDS ORDERED: HEPARIN 10,000 UNIT/10ML (1,000 UNIT/ML) VIAL ONE (07:32)
[2023-11-08] MEDS ORDERED: IOHEXOL 350 MG/ML 100ML INFUS..BTL IV ONE (07:34)
[2023-11-08] MEDS ORDERED: GLUCAGON 1MG KIT 1 MG ML IM PRN (08:30)
[2023-11-08] MEDS ORDERED: DEXTROSE 50%-WATER 50 ML DISP.SYRIN IV PRN (08:30)
[2023-11-08] MEDS: 0.9%NACL 1000ML 1,000 ML IV SCH (08:58)
[2023-11-08] MEDS ORDERED: NICARDIPINE 25MG INJ IV ONE (09:03)
[2023-11-08] MEDS ORDERED: INSULIN HUMULIN R 100 UNIT/ML 3ML SQ SCH (11:30)
== END 2023-11-08 15:00 | disposition home or self-care (01) ==
LOC: DAH 05:38
PROVIDERS: ATTEND Internal Medicine Cardiovascular Disease
DX: I35.0 Nonrheumatic aortic (valve) stenosis (principal); I25.119 Atherosclerotic heart disease of native coronary artery with unspecified angina pectoris; I11.0 Hypertensive heart disease with heart failure; I50.32 Chronic diastolic (congestive) heart failure; I44.0 Atrioventricular block, first degree; I45.10 Unspecified right bundle-branch block; K21.9 Gastro-esophageal reflux disease without esophagitis; E11.9 Type 2 diabetes mellitus without complications; E66.9 Obesity, unspecified; G47.33 Obstructive sleep apnea (adult) (pediatric); Z79.899 Other long term (current) drug therapy; Z79.01 Long term (current) use of anticoagulants; Z98.890 Other specified postprocedural states; Z79.82 Long term (current) use of aspirin; Z82.49 Family history of ischemic heart disease and other diseases of the circulatory system; Z68.38 Body mass index [BMI] 38.0-38.9, adult; Z95.5 Presence of coronary angioplasty implant and graft
CPT/HCPCS: 80048; 83880; 85025; 85610; 85730; 87088; 81001; 36415; 71045; 93005; 93460; 82948 ×2; C1769 ×2; C1894 ×3; C1760; C1893; J3490 ×4; J7030; J2250; J2175; J1644; Q9967; A4215; A4222; A4221; A4663; A4216; A4606; Q9965; A4223 ×3; 96360; 96361; 99156; 99157

== ENCOUNTER → 2023-11-15 | Outpatient (CLI) | payer MEDICARE ==
[~2023-11-15] MED LIST changes: -OMEGA 3 PO
[2023-11-15 16:23] LABS: BASOPHILS # (AUTO) 0.06 K/uL (0.00-0.20); BASOPHILS % (AUTO) 0.9 % (0.0-5.0); EOSINOPHILS # (AUTO) 0.16 K/uL (0.00-0.70); EOSINOPHILS % (AUTO) 2.4 % (0.0-8.0); HEMATOCRIT 43.1 % (36-48); IMMATURE GRANULOCYTE ABSOLUTE 0.04 K/uL (0-1); LYMPHOCYTES # (AUTO) 1.8 K/uL (1.0-4.8); LYMPHOCYTES % (AUTO) 26.3 % (21.0-51.0); MEAN CORPUSCULAR HEMOGLOBIN 31.9 pg (27.0-33.0); MEAN CORPUSCULAR HGB CONC 33.2 g/dL (32.0-36.0); MEAN CORPUSCULAR VOLUME 96.2 fL (79-99); MONOCYTES % (AUTO) 14.7 % (3.0-13.0); NEUTROPHILS # (AUTO) 3.7 K/uL (1.8-7.7); NEUTROPHILS % (AUTO) 55.1 % (40.0-77.0); PLATELET COUNT (AUTO) 218 K/uL (130-400); RED BLOOD CELL COUNT(AUTO) 4.48 MIL/uL (4.00-5.50); RED CELL DISTRIBUTION WIDTH 13.5 % (11.0-15.5); WHITE BLOOD COUNT (AUTO) 6.7 K/uL (4.8-10.8)
[2023-11-15 16:38] LABS: ALBUMIN 3.5 g/dL (3.5-5.0); BILIRUBIN,TOTAL 0.4 mg/dL (0.2-1.0)
== END | disposition home or self-care (01) ==
LOC: LAB 13:24
PROVIDERS: ATTEND Internal Medicine Cardiovascular Disease
DX: R23.3 Spontaneous ecchymoses (principal); E78.5 Hyperlipidemia, unspecified; I35.0 Nonrheumatic aortic (valve) stenosis
CPT/HCPCS: 36415; 80053; 83880; 85025; 93926

== ENCOUNTER 2023-12-03 12:00 | Inpatient (IN) | payer MEDICARE ==
[~2023-12-03] VITALS: Ht 165.1 cm; Wt 106.8 kg
[2023-12-03 13:06] LABS: BASOPHILS # (AUTO) 0.04 K/uL (0.00-0.20); BASOPHILS % (AUTO) 0.5 % (0.0-5.0); EOSINOPHILS # (AUTO) 0.17 K/uL (0.00-0.70); HEMATOCRIT 37.5 % (36-48); IMMATURE GRANULOCYTE ABSOLUTE 0.13 K/uL (0-1); LYMPHOCYTES # (AUTO) 1.3 K/uL (1.0-4.8); LYMPHOCYTES % (AUTO) 15.8 % (21.0-51.0); MEAN CORPUSCULAR HEMOGLOBIN 31.1 pg (27.0-33.0); MEAN CORPUSCULAR HGB CONC 33.6 g/dL (32.0-36.0); MEAN CORPUSCULAR VOLUME 92.6 fL (79-99); MONOCYTES # (AUTO) 0.8 K/uL (0.1-1.0); MONOCYTES % (AUTO) 9.9 % (3.0-13.0); NEUTROPHILS % (AUTO) 70.3 % (40.0-77.0); PLATELET COUNT (AUTO) 275 K/uL (130-400); RED BLOOD CELL COUNT(AUTO) 4.05 MIL/uL (4.00-5.50); RED CELL DISTRIBUTION WIDTH 12.8 % (11.0-15.5); WHITE BLOOD COUNT (AUTO) 8.5 K/uL (4.8-10.8)
[2023-12-03 13:11] LABS: CREATININE 0.9 mg/dL (0.5-1.0); POTASSIUM 4.1 mmol/L (3.5-5.1)
[2023-12-03 13:16] LABS: ALBUMIN 2.9 g/dL (3.5-5.0); BILIRUBIN,TOTAL 0.7 mg/dL (0.2-1.0); TOTAL PROTEIN, SERUM 7.4 g/dL (6.0-8.3)
[2023-12-03] MEDS ORDERED: GLUCAGON 1MG KIT 1 MG ML IM PRN (15:00)
[2023-12-03] MEDS ORDERED: LACTULOSE 20 GM/30 ML UDCUP PO PRN (15:00)
[2023-12-03] MEDS ORDERED: ACETAMINOPHEN 650 MG SUPPOSITORY RC PRN (15:00)
[2023-12-03] MEDS ORDERED: DEXTROSE 50%-WATER 50 ML DISP.SYRIN IV PRN (15:00)
[2023-12-03] MEDS ORDERED: KCL 20 MEQ ERTAB PO PRN (15:00)
[2023-12-03] MEDS ORDERED: DiphenhydrAMINE HCL 50 MG/ML VIAL IV PRN (15:00)
[2023-12-03] MEDS ORDERED: POTASSIUM CHLORIDE 20MEQ/100ML 100 ML IV PRN ×2 (15:00)
[2023-12-03] MEDS ORDERED: ACETAMINOPHEN 325 MG TAB PO PRN (15:00)
[2023-12-03] MEDS ORDERED: TEMAZEPAM 15 MG CAPSULE PO PRN (15:00)
[2023-12-03] MEDS ORDERED: ONDANSETRON 4MG INJ IVP PRN (15:00)
[2023-12-03] MEDS ORDERED: IBUPROFEN 600 MG TABLET PO PRN (15:00)
[2023-12-03] MEDS ORDERED: POTASSIUM CHLORIDE 10% ELIXIR 20 MEQ/15 ML UDCUP PO PRN (15:00)
[2023-12-03] MEDS: SOLU-MEDROL 125MG VIAL IVP ONE (15:30)
[2023-12-03] MEDS: CEFEPIME HCL 2 GM VIAL IVPB SCH (15:33)
[2023-12-03 15:42] LABS: HEMOGLOBIN A1C 8.2 % (4.0-6.0)
[2023-12-03 16:00] VITALS: BP 164/71; PULSE 64; RESP 20
[2023-12-03 16:06] LABS: BASOPHILS # (AUTO) 0.04 K/uL (0.00-0.20); BASOPHILS % (AUTO) 0.4 % (0.0-5.0); EOSINOPHILS % (AUTO) 0.9 % (0.0-8.0); IMMATURE GRANULOCYTE ABSOLUTE 0.19 K/uL (0-1); LYMPHOCYTES # (AUTO) 0.9 K/uL (1.0-4.8); LYMPHOCYTES % (AUTO) 7.9 % (21.0-51.0); MEAN CORPUSCULAR HEMOGLOBIN 31.2 pg (27.0-33.0); MEAN CORPUSCULAR HGB CONC 33.9 g/dL (32.0-36.0); MEAN CORPUSCULAR VOLUME 91.8 fL (79-99); MONOCYTES # (AUTO) 0.8 K/uL (0.1-1.0); MONOCYTES % (AUTO) 6.8 % (3.0-13.0); NEUTROPHILS # (AUTO) 9.1 K/uL (1.8-7.7); NEUTROPHILS % (AUTO) 82.3 % (40.0-77.0); PLATELET COUNT (AUTO) 271 K/uL (130-400); RED BLOOD CELL COUNT(AUTO) 4.14 MIL/uL (4.00-5.50); RED CELL DISTRIBUTION WIDTH 12.8 % (11.0-15.5); WHITE BLOOD COUNT (AUTO) 11.1 K/uL (4.8-10.8)
[2023-12-03] MEDS ORDERED: IOHEXOL 350 MG/ML 100ML INFUS..BTL IV ONE (16:06)
[2023-12-03 16:17] LABS: INR 0.96 (0.85-1.15); PROTHROMBIN TIME 11.4 SEC (9.6-11.6)
[2023-12-03 16:19] LABS: PARTIAL THROMBOPLASTIN TIME 34.7 SEC (26.3-35.5)
[2023-12-03] MEDS: INSULIN HUMULIN R 100 UNIT/ML 3ML SQ SCH (16:30)
[2023-12-03 16:41] LABS: B-TYPE NATRIURETIC PEPTIDE 71 pg/mL (0-100)
[2023-12-03] MEDS: 0.9%NACL 1000ML 1,000 ML IV SCH (16:48)
[2023-12-03 17:00] LABS: CREATININE 0.8 mg/dL (0.5-1.0); POTASSIUM 4.3 mmol/L (3.5-5.1)
[2023-12-03] MEDS ORDERED: METRONIDAZOLE 500MG/100ML BAG 100 ML IVPB SCH (17:00)
[2023-12-03] MEDS ORDERED: FLUCONAZOLE 400 MG/NS 200 ML 200 ML IV SCH (17:00)
[2023-12-03 17:06] LABS: ALBUMIN 2.9 g/dL (3.5-5.0); BILIRUBIN,TOTAL 0.7 mg/dL (0.2-1.0); TOTAL PROTEIN, SERUM 7.4 g/dL (6.0-8.3)
[2023-12-03 17:47] LABS: SARS-CoV-2, RNA, NAAT NEGATIVE SARS CoV-2 (NEGATIVE)
[2023-12-03 20:00] VITALS: BP 164/71; PULSE 65; RESP 19
[2023-12-03 20:32] LABS: APPEARANCE,URINE CLEAR (CLEAR); BILIRUBIN,URINE NEGATIVE (NEGATIVE); COLOR,URINE YELLOW (YELLOW); GLUCOSE, URINE (UA) NEGATIVE (NEGATIVE); KETONES,URINE NEGATIVE (NEGATIVE); LEUKOCYTE ESTERASE ,URINE 25 Leu/uL (NEGATIVE); NITRATE,URINE NEGATIVE (NEGATIVE); PROTEIN,URINE NEGATIVE (NEGATIVE); UROBILINOGEN,URINE 0.2 mg/dL (0.2-1.0)
[2023-12-03 20:35] VITALS: O2SAT 99
[2023-12-03 20:47] LABS: ADD UA MICROSCOPIC YES
[2023-12-03 20:56] VITALS: O2SAT 93
[2023-12-03 20:59] LABS: BACTERIA,URINE RARE /HPF (None Seen); MUCUS,URINE RARE LPF (None Seen); SQUAMOUS EPITHELIAL CELL,UR FEW /HPF (0-2)
[2023-12-03] MEDS: FLUCONAZOLE 400 MG/NS 200 ML 200 ML IV SCH (21:19)
[2023-12-03] MEDS: METRONIDAZOLE 500MG/100ML BAG 100 ML IVPB SCH (21:19)
[2023-12-04] VITALS (9 sets, daily range): BP systolic 122–164; BP diastolic 56–74; PULSE 50–60; RESP 16–20; O2SAT 95–99
[2023-12-04] MEDS: LOSARTAN 50 MG TABLET PO SCH (08:53)
[2023-12-04] MEDS: PANTOPRAZOLE 40 MG TAB DR PO SCH (08:53)
[2023-12-04] MEDS: ASPIRIN 81 MG EC TAB PO SCH (08:53)
[2023-12-04] MEDS: MAGNESIUM OXIDE 400 MG TABLET PO SCH (08:53)
[2023-12-04 12:44] LABS: BASOPHILS # (AUTO) 0.02 K/uL (0.00-0.20); BASOPHILS % (AUTO) 0.1 % (0.0-5.0); EOSINOPHILS # (AUTO) 0.01 K/uL (0.00-0.70); EOSINOPHILS % (AUTO) 0.1 % (0.0-8.0); HEMATOCRIT 36.2 % (36-48); IMMATURE GRANULOCYTE ABSOLUTE 0.22 K/uL (0-1); LYMPHOCYTES # (AUTO) 0.9 K/uL (1.0-4.8); LYMPHOCYTES % (AUTO) 6.7 % (21.0-51.0); MEAN CORPUSCULAR HEMOGLOBIN 30.7 pg (27.0-33.0); MEAN CORPUSCULAR VOLUME 90.3 fL (79-99); MONOCYTES # (AUTO) 0.7 K/uL (0.1-1.0); NEUTROPHILS # (AUTO) 11.7 K/uL (1.8-7.7); NEUTROPHILS % (AUTO) 86.5 % (40.0-77.0); PLATELET COUNT (AUTO) 279 K/uL (130-400); RED BLOOD CELL COUNT(AUTO) 4.01 MIL/uL (4.00-5.50); RED CELL DISTRIBUTION WIDTH 12.5 % (11.0-15.5); WHITE BLOOD COUNT (AUTO) 13.5 K/uL (4.8-10.8)
[2023-12-04 12:53] LABS: CREATININE 0.8 mg/dL (0.5-1.0); POTASSIUM 4.4 mmol/L (3.5-5.1)
[2023-12-04 20:20] LABS: CREATININE 1.1 mg/dL (0.5-1.0); POTASSIUM 4.9 mmol/L (3.5-5.1)
[2023-12-04] MEDS: INSULIN GLARGINE 100 UNITS/ML 10 ML VIAL SQ SCH (20:45)
[2023-12-04] MEDS ORDERED: FLUCONAZOLE 400 MG/NS 200 ML 200 ML IV SCH (21:00)
[2023-12-04] MEDS: 0.9%NACL 1000ML 1,000 ML IV SCH (21:00)
[2023-12-04 21:09] LABS: ALBUMIN 2.6 g/dL (3.5-5.0); BILIRUBIN,DIRECT 0.2 mg/dL (0.0-0.3); BILIRUBIN,TOTAL 0.4 mg/dL (0.2-1.0)
[2023-12-04] MEDS: 0.9%NACL 1000ML 570 ML IV ONE (21:12)
[2023-12-05] VITALS (7 sets, daily range): BP systolic 145–163; BP diastolic 54–89; PULSE 48–98; RESP 16–20; O2SAT 96–99
[2023-12-05 05:02] LABS: BASOPHILS # (AUTO) 0.03 K/uL (0.00-0.20); BASOPHILS % (AUTO) 0.2 % (0.0-5.0); EOSINOPHILS # (AUTO) 0.01 K/uL (0.00-0.70); EOSINOPHILS % (AUTO) 0.1 % (0.0-8.0); HEMATOCRIT 35.2 % (36-48); IMMATURE GRANULOCYTE ABSOLUTE 0.25 K/uL (0-1); LYMPHOCYTES # (AUTO) 1.1 K/uL (1.0-4.8); MEAN CORPUSCULAR HEMOGLOBIN 31.4 pg (27.0-33.0); MEAN CORPUSCULAR HGB CONC 33.5 g/dL (32.0-36.0); MEAN CORPUSCULAR VOLUME 93.6 fL (79-99); MONOCYTES % (AUTO) 6.4 % (3.0-13.0); NEUTROPHILS # (AUTO) 13.7 K/uL (1.8-7.7); NEUTROPHILS % (AUTO) 84.8 % (40.0-77.0); PLATELET COUNT (AUTO) 261 K/uL (130-400); RED BLOOD CELL COUNT(AUTO) 3.76 MIL/uL (4.00-5.50); RED CELL DISTRIBUTION WIDTH 12.9 % (11.0-15.5); WHITE BLOOD COUNT (AUTO) 16.2 K/uL (4.8-10.8)
[2023-12-05 05:15] LABS: INR 1.01 (0.85-1.15); PROTHROMBIN TIME 11.9 SEC (9.6-11.6)
[2023-12-05 05:16] LABS: PARTIAL THROMBOPLASTIN TIME 28.3 SEC (26.3-35.5)
[2023-12-05 05:24] LABS: ALBUMIN 2.5 g/dL (3.5-5.0); BILIRUBIN,TOTAL 0.3 mg/dL (0.2-1.0); CREATININE 0.9 mg/dL (0.5-1.0); MAGNESIUM 2.2 mg/dL (1.80-2.40); POTASSIUM 4.7 mmol/L (3.5-5.1); TOTAL PROTEIN, SERUM 6.7 g/dL (6.0-8.3)
[2023-12-05] MEDS: HYDRALAZINE 20MG/ML VIAL IV PRN (12:22)
[2023-12-06] VITALS (48 sets, daily range): BP systolic 80–170; BP diastolic 43–93; PULSE 46–108; RESP 11–24; TEMP 96.8–99; O2SAT 96–99
[2023-12-06 04:59] LABS: HEMATOCRIT 36.8 % (36-48); MEAN CORPUSCULAR HEMOGLOBIN 31.3 pg (27.0-33.0); MEAN CORPUSCULAR HGB CONC 34.2 g/dL (32.0-36.0); MEAN CORPUSCULAR VOLUME 91.5 fL (79-99); RED BLOOD CELL COUNT(AUTO) 4.02 MIL/uL (4.00-5.50); RED CELL DISTRIBUTION WIDTH 13.2 % (11.0-15.5); WHITE BLOOD COUNT (AUTO) 10.3 K/uL (4.8-10.8)
[2023-12-06 05:15] LABS: INR 1.01 (0.85-1.15); PROTHROMBIN TIME 11.9 SEC (9.6-11.6)
[2023-12-06 05:19] LABS: ALBUMIN 2.7 g/dL (3.5-5.0); BILIRUBIN,TOTAL 0.4 mg/dL (0.2-1.0); CREATININE 0.9 mg/dL (0.5-1.0); MAGNESIUM 2.1 mg/dL (1.80-2.40); POTASSIUM 4.1 mmol/L (3.5-5.1); TOTAL PROTEIN, SERUM 7.2 g/dL (6.0-8.3)
[2023-12-06] MEDS: LOSARTAN 100 MG TABLET PO SCH (08:16)
[2023-12-06] MEDS ORDERED: LIDOCAINE PF 100MG/5ML (2%) SYRINGE 5ML ONE (12:59)
[2023-12-06] MEDS ORDERED: LIDOCAINE HCL-MPF 1% 5ML AMP IJ ONE (13:01)
[2023-12-06] MEDS ORDERED: MIDAZOLAM HCL 1 MG/ML 2ML VIAL ONE (13:02)
[2023-12-06] MEDS ORDERED: ROCURONIUM BROMIDE 10MG/1ML 5ML VL ONE (13:02)
[2023-12-06] MEDS ORDERED: PROPOFOL 10 MG/ML 20ML VIAL IV ONE (13:02)
[2023-12-06] MEDS ORDERED: ONDANSETRON 4MG INJ ONE (13:03)
[2023-12-06] MEDS ORDERED: FENTANYL CITRATE PF 50 MCG/1 ML 2ML VIAL ONE (13:03)
[2023-12-06] MEDS: CEFAZOLIN SODIUM 1 GM VIAL ONE (13:50)
[2023-12-06] MEDS ORDERED: GLYCOPYRROLATE 0.2 MG/ML 5 ML VIAL ONE (13:54)
[2023-12-06] MEDS ORDERED: ALBUMIN (HUMAN) 5% 500 ML IV ONE (13:56)
[2023-12-06] MEDS ORDERED: ALBUMIN (HUMAN) 5% 250 ML IV ONE (13:56)
[2023-12-06] MEDS ORDERED: EPHEDRINE SULFATE 50 MG/ML AMPULE ONE (13:59)
[2023-12-06] MEDS ORDERED: EPINEPHRINE PF 1MG (1:1,000) 1 MG/ML AMP ONE (14:06)
[2023-12-06] MEDS ORDERED: ACETAMINOPHEN 325 MG TAB PO PRN (14:30)
[2023-12-06] MEDS ORDERED: TRAMADOL HCL 50 MG TABLET PO PRN ×2 (14:30)
[2023-12-06 14:47] LABS: ABG BASE EXCESS -7.3 mmol/L (-2.0-3.0); ABG HCO3 19.1 mmol/L (21.0-28.0); ABG OXYGEN SATURATION 98.8 % (95.0-99.0); ABG PCO2 42 mmHg (32-45); ABG PH 7.277 (7.35-7.450); CARBON MONOXIDE 0.2; HHb 1.2; VENT MODE, BG ANT VENT (ROOM AIR)
[2023-12-06] MEDS ORDERED: NOREPINEPHRIN 8MG/250ML NS 250 ML IV PRN (15:00)
[2023-12-06] MEDS: ALBUMIN (HUMAN) 5% 250 ML IV ONE (15:49)
[2023-12-06 15:58] LABS: ABG BASE EXCESS -0.9 mmol/L (-2.0-3.0); ABG HCO3 22.5 mmol/L (21.0-28.0); ABG OXYGEN SATURATION 98.7 % (95.0-99.0); ABG PCO2 34 mmHg (32-45); ABG PH 7.442 (7.35-7.450); CARBON MONOXIDE 0.1; DEVICE COMMENT AKINESHERRY; HHb 1.3; PO2, ARTERIAL BG 174.5 mmHg (83.0-108.0); VENT MODE, BG AC (ROOM AIR)
[2023-12-06] MEDS ORDERED: VASOPRESSIN 40 UNITS in 0.9%NACL 50ML 40 ML IV PRN (16:30)
[2023-12-06 16:54] LABS: HEMATOCRIT 33.7 % (36-48); MEAN CORPUSCULAR HEMOGLOBIN 30.1 pg (27.0-33.0); MEAN CORPUSCULAR HGB CONC 34.7 g/dL (32.0-36.0); MEAN CORPUSCULAR VOLUME 86.6 fL (79-99); RED BLOOD CELL COUNT(AUTO) 3.89 MIL/uL (4.00-5.50); RED CELL DISTRIBUTION WIDTH 13.9 % (11.0-15.5); WHITE BLOOD COUNT (AUTO) 24.8 K/uL (4.8-10.8)
[2023-12-06] MEDS ORDERED: FENTANYL CITRATE PF 0.05 MG/ML 1,000 MCG in 0.9%NACL 100ML 100 ML IV PRN (17:00)
[2023-12-06 17:04] LABS: CREATININE 0.7 mg/dL (0.5-1.0); POTASSIUM 4.2 mmol/L (3.5-5.1)
[2023-12-06 17:10] LABS: ALBUMIN 2.3 g/dL (3.5-5.0); BILIRUBIN,TOTAL 1.4 mg/dL (0.2-1.0); TOTAL PROTEIN, SERUM 4.6 g/dL (6.0-8.3)
[2023-12-06] MEDS: PROPOFOL 1000 MG/100 ML 100 ML IV PRN (18:12)
[2023-12-06] MEDS: CEFAZOLIN SODIUM 2 GM VIAL IVPB SCH (21:27)
[2023-12-06] MEDS: FENTANYL 1000MCG+NS 100ML 100 ML IV SCH (21:46)
[2023-12-06 22:02] LABS: ABG BASE EXCESS -4.7 mmol/L (-2.0-3.0); ABG HCO3 18.5 mmol/L (21.0-28.0); ABG OXYGEN SATURATION 98.8 % (95.0-99.0); ABG PCO2 30 mmHg (32-45); ABG PH 7.412 (7.35-7.450); VENT MODE, BG ACVC (ROOM AIR)
[2023-12-06 22:09] LABS: HEMATOCRIT 33.6 % (36-48)
[2023-12-07] VITALS (102 sets, daily range): BP systolic 84–154; BP diastolic 33–96; PULSE 53–77; RESP 9–27; TEMP 98.6–98.8; O2SAT 93–98
[2023-12-07 03:56] LABS: ABG BASE EXCESS -4.5 mmol/L (-2.0-3.0); ABG OXYGEN SATURATION 98.7 % (95.0-99.0); ABG PCO2 27 mmHg (32-45); ABG PH 7.439 (7.35-7.450); PO2, ARTERIAL BG 126.2 mmHg (83.0-108.0); VENT MODE, BG AC VC (ROOM AIR)
[2023-12-07 04:38] LABS: BASOPHILS # (AUTO) 0.05 K/uL (0.00-0.20); BASOPHILS % (AUTO) 0.2 % (0.0-5.0); EOSINOPHILS # (AUTO) 0.01 K/uL (0.00-0.70); HEMATOCRIT 29.9 % (36-48); IMMATURE GRANULOCYTE ABSOLUTE 0.78 K/uL (0-1); LYMPHOCYTES % (AUTO) 4.3 % (21.0-51.0); MEAN CORPUSCULAR HEMOGLOBIN 30.8 pg (27.0-33.0); MEAN CORPUSCULAR HGB CONC 34.8 g/dL (32.0-36.0); MEAN CORPUSCULAR VOLUME 88.5 fL (79-99); MONOCYTES # (AUTO) 1.7 K/uL (0.1-1.0); MONOCYTES % (AUTO) 7.1 % (3.0-13.0); NEUTROPHILS % (AUTO) 85.1 % (40.0-77.0); PLATELET COUNT (AUTO) 229 K/uL (130-400); RED BLOOD CELL COUNT(AUTO) 3.38 MIL/uL (4.00-5.50); RED CELL DISTRIBUTION WIDTH 15.2 % (11.0-15.5); WHITE BLOOD COUNT (AUTO) 23.5 K/uL (4.8-10.8)
[2023-12-07 04:54] LABS: ALBUMIN 2.3 g/dL (3.5-5.0); BILIRUBIN,TOTAL 0.7 mg/dL (0.2-1.0); CREATININE 1.1 mg/dL (0.5-1.0); MAGNESIUM 1.7 mg/dL (1.80-2.40); PHOSPHORUS 3.5 mg/dL (2.5-4.9); POTASSIUM 4.5 mmol/L (3.5-5.1); TOTAL PROTEIN, SERUM 4.8 g/dL (6.0-8.3)
[2023-12-07] MEDS: MAGNESIUM 2GM PREMIX 50ML 50 ML IV PRN (05:37)
[2023-12-07 10:15] LABS: HEMATOCRIT 28.9 % (36-48)
[2023-12-07 16:14] LABS: HEMATOCRIT 33.7 % (36-48)
[2023-12-08] VITALS (8 sets, daily range): BP systolic 110–132; BP diastolic 44–60; PULSE 52–73; RESP 15–22; O2SAT 92–99
[2023-12-08 04:52] LABS: BASOPHILS # (AUTO) 0.03 K/uL (0.00-0.20); BASOPHILS % (AUTO) 0.2 % (0.0-5.0); EOSINOPHILS # (AUTO) 0.01 K/uL (0.00-0.70); EOSINOPHILS % (AUTO) 0.1 % (0.0-8.0); HEMATOCRIT 26.2 % (36-48); IMMATURE GRANULOCYTE ABSOLUTE 0.39 K/uL (0-1); LYMPHOCYTES # (AUTO) 1.6 K/uL (1.0-4.8); LYMPHOCYTES % (AUTO) 9.5 % (21.0-51.0); MEAN CORPUSCULAR HEMOGLOBIN 29.5 pg (27.0-33.0); MEAN CORPUSCULAR HGB CONC 32.8 g/dL (32.0-36.0); MEAN CORPUSCULAR VOLUME 89.7 fL (79-99); MONOCYTES # (AUTO) 1.4 K/uL (0.1-1.0); MONOCYTES % (AUTO) 8.1 % (3.0-13.0); NEUTROPHILS # (AUTO) 13.7 K/uL (1.8-7.7); NEUTROPHILS % (AUTO) 79.8 % (40.0-77.0); PLATELET COUNT (AUTO) 172 K/uL (130-400); RED BLOOD CELL COUNT(AUTO) 2.92 MIL/uL (4.00-5.50); RED CELL DISTRIBUTION WIDTH 15.7 % (11.0-15.5); WHITE BLOOD COUNT (AUTO) 17.1 K/uL (4.8-10.8)
[2023-12-08 05:02] LABS: CREATININE 1.1 mg/dL (0.5-1.0); MAGNESIUM 2.4 mg/dL (1.80-2.40); POTASSIUM 4.4 mmol/L (3.5-5.1)
[2023-12-08] MEDS: FUROSEMIDE 20MG VIAL IV ONE (07:44)
[2023-12-09] VITALS (9 sets, daily range): BP systolic 107–134; BP diastolic 46–64; PULSE 54–68; RESP 18–20; O2SAT 93–95
[2023-12-09] MEDS: CLOPIDOGREL 75MG TAB PO SCH (09:33)
[2023-12-09] MEDS ORDERED: PHARMACY COMMUNICATION MISC SCH (14:30)
[2023-12-09] MEDS: SULFAMETHOX-TMP DS 800/160 TAB PO SCH (21:14)
[2023-12-10] VITALS (9 sets, daily range): BP systolic 111–152; BP diastolic 55–66; PULSE 58–86; RESP 18–22; O2SAT 95–97
[2023-12-10 03:51] LABS: BASOPHILS # (AUTO) 0.06 K/uL (0.00-0.20); BASOPHILS % (AUTO) 0.5 % (0.0-5.0); EOSINOPHILS # (AUTO) 0.28 K/uL (0.00-0.70); EOSINOPHILS % (AUTO) 2.5 % (0.0-8.0); HEMATOCRIT 25.7 % (36-48); LYMPHOCYTES # (AUTO) 2.4 K/uL (1.0-4.8); LYMPHOCYTES % (AUTO) 21.5 % (21.0-51.0); MEAN CORPUSCULAR HEMOGLOBIN 30.5 pg (27.0-33.0); MEAN CORPUSCULAR HGB CONC 33.5 g/dL (32.0-36.0); MEAN CORPUSCULAR VOLUME 91.1 fL (79-99); MONOCYTES # (AUTO) 0.9 K/uL (0.1-1.0); MONOCYTES % (AUTO) 8.1 % (3.0-13.0); NEUTROPHILS % (AUTO) 61.2 % (40.0-77.0); PLATELET COUNT (AUTO) 187 K/uL (130-400); RED BLOOD CELL COUNT(AUTO) 2.82 MIL/uL (4.00-5.50); RED CELL DISTRIBUTION WIDTH 14.6 % (11.0-15.5); WHITE BLOOD COUNT (AUTO) 11.4 K/uL (4.8-10.8)
[2023-12-10 04:11] LABS: PROTHROMBIN TIME 11.8 SEC (9.6-11.6)
[2023-12-10 04:14] LABS: POTASSIUM 4.1 mmol/L (3.5-5.1)
[2023-12-11] VITALS (10 sets, daily range): BP systolic 121–157; BP diastolic 48–68; PULSE 57–69; RESP 18–21; O2SAT 95–97
[2023-12-11 03:36] LABS: BASOPHILS # (AUTO) 0.06 K/uL (0.00-0.20); BASOPHILS % (AUTO) 0.6 % (0.0-5.0); EOSINOPHILS # (AUTO) 0.24 K/uL (0.00-0.70); EOSINOPHILS % (AUTO) 2.3 % (0.0-8.0); HEMATOCRIT 26.5 % (36-48); IMMATURE GRANULOCYTE ABSOLUTE 0.65 K/uL (0-1); LYMPHOCYTES # (AUTO) 1.8 K/uL (1.0-4.8); MEAN CORPUSCULAR HEMOGLOBIN 30.4 pg (27.0-33.0); MEAN CORPUSCULAR HGB CONC 33.2 g/dL (32.0-36.0); MEAN CORPUSCULAR VOLUME 91.7 fL (79-99); MONOCYTES # (AUTO) 0.9 K/uL (0.1-1.0); MONOCYTES % (AUTO) 8.1 % (3.0-13.0); NEUTROPHILS # (AUTO) 6.9 K/uL (1.8-7.7); NEUTROPHILS % (AUTO) 65.8 % (40.0-77.0); PLATELET COUNT (AUTO) 199 K/uL (130-400); RED BLOOD CELL COUNT(AUTO) 2.89 MIL/uL (4.00-5.50); RED CELL DISTRIBUTION WIDTH 15.1 % (11.0-15.5); WHITE BLOOD COUNT (AUTO) 10.5 K/uL (4.8-10.8)
[2023-12-11 03:45] LABS: POTASSIUM 3.9 mmol/L (3.5-5.1)
[2023-12-11] MEDS: ASPIRIN 81 MG EC TAB PO SCH (08:29)
[2023-12-12] VITALS (9 sets, daily range): BP systolic 113–157; BP diastolic 52–70; PULSE 57–65; RESP 16–20; O2SAT 95–98
[2023-12-13] VITALS (7 sets, daily range): BP systolic 138–156; BP diastolic 53–70; PULSE 59–89; RESP 16–20; O2SAT 98–99
[2023-12-13 03:34] LABS: BASOPHILS # (AUTO) 0.04 K/uL (0.00-0.20); BASOPHILS % (AUTO) 0.5 % (0.0-5.0); EOSINOPHILS # (AUTO) 0.34 K/uL (0.00-0.70); EOSINOPHILS % (AUTO) 4.2 % (0.0-8.0); HEMATOCRIT 25.8 % (36-48); IMMATURE GRANULOCYTE ABSOLUTE 0.42 K/uL (0-1); LYMPHOCYTES # (AUTO) 1.7 K/uL (1.0-4.8); LYMPHOCYTES % (AUTO) 21.4 % (21.0-51.0); MEAN CORPUSCULAR HEMOGLOBIN 30.4 pg (27.0-33.0); MEAN CORPUSCULAR HGB CONC 32.2 g/dL (32.0-36.0); MEAN CORPUSCULAR VOLUME 94.5 fL (79-99); MONOCYTES # (AUTO) 0.8 K/uL (0.1-1.0); NEUTROPHILS # (AUTO) 4.8 K/uL (1.8-7.7); NEUTROPHILS % (AUTO) 58.7 % (40.0-77.0); PLATELET COUNT (AUTO) 205 K/uL (130-400); RED BLOOD CELL COUNT(AUTO) 2.73 MIL/uL (4.00-5.50); RED CELL DISTRIBUTION WIDTH 15.6 % (11.0-15.5); WHITE BLOOD COUNT (AUTO) 8.1 K/uL (4.8-10.8)
[2023-12-13 03:35] LABS: POTASSIUM 3.7 mmol/L (3.5-5.1)
== END 2023-12-13 20:15 | DRG 853 ==
LOC: EDH 12:00 → EDHIP 14:53 → 4AH 16:38 → 3BH 17:49 → 2CV 12-06 15:00 → 2AH 12-08 12:24
PROVIDERS: ADMIT Internal Medicine Critical Care Medicine; ATTEND Internal Medicine Critical Care Medicine
PROC: 30233N1 Transfusion of Nonautologous Red Blood Cells into Peripheral Vein, Percutaneous Approach (ICD-10-PCS; 2023-12-06)
PROC: 041H0JH Bypass Right External Iliac Artery to Right Femoral Artery with Synthetic Substitute, Open Approach (ICD-10-PCS; principal; 2023-12-06 13:07)
PROC: 02HV33Z Insertion of Infusion Device into Superior Vena Cava, Percutaneous Approach (ICD-10-PCS; 2023-12-07)
PROC: B548ZZA Ultrasonography of Superior Vena Cava, Guidance (ICD-10-PCS; 2023-12-07)
PROC: 5A09357 Assistance with Respiratory Ventilation, Less than 24 Consecutive Hours, Continuous Positive Airway Pressure (ICD-10-PCS; 2023-12-07)
PROC: 05HB33Z Insertion of Infusion Device into Right Basilic Vein, Percutaneous Approach (ICD-10-PCS; 2023-12-10)
PROC: 5A09357 Assistance with Respiratory Ventilation, Less than 24 Consecutive Hours, Continuous Positive Airway Pressure (ICD-10-PCS; 2023-12-11)
PROC: 5A09357 Assistance with Respiratory Ventilation, Less than 24 Consecutive Hours, Continuous Positive Airway Pressure (ICD-10-PCS; 2023-12-11)
DX: A41.59 Other Gram-negative sepsis (principal); J95.2 Acute pulmonary insufficiency following nonthoracic surgery; E46 Unspecified protein-calorie malnutrition; E87.1 Hypo-osmolality and hyponatremia; I72.3 Aneurysm of iliac artery; I25.10 Atherosclerotic heart disease of native coronary artery without angina pectoris; D64.9 Anemia, unspecified; E11.22 Type 2 diabetes mellitus with diabetic chronic kidney disease; E66.9 Obesity, unspecified; E78.00 Pure hypercholesterolemia, unspecified; E87.70 Fluid overload, unspecified; G47.33 Obstructive sleep apnea (adult) (pediatric); Z20.822 Contact with and (suspected) exposure to COVID-19; I12.9 Hypertensive chronic kidney disease with stage 1 through stage 4 chronic kidney disease, or unspecified chronic kidney disease; I35.0 Nonrheumatic aortic (valve) stenosis; N18.9 Chronic kidney disease, unspecified; E66.01 Morbid (severe) obesity due to excess calories; N89.8 Other specified noninflammatory disorders of vagina; N93.9 Abnormal uterine and vaginal bleeding, unspecified; Z96.653 Presence of artificial knee joint, bilateral; Z66 Do not resuscitate; Y83.2 Surgical operation with anastomosis, bypass or graft as the cause of abnormal reaction of the patient, or of later complication, without mention of misadventure at the time of the procedure; Z79.02 Long term (current) use of antithrombotics/antiplatelets; Z88.1 Allergy status to other antibiotic agents; Z88.5 Allergy status to narcotic agent; Z91.048 Other nonmedicinal substance allergy status; Z68.39 Body mass index [BMI] 39.0-39.9, adult; Z79.4 Long term (current) use of insulin; Z79.82 Long term (current) use of aspirin; Z79.899 Other long term (current) drug therapy; Z95.5 Presence of coronary angioplasty implant and graft
CPT/HCPCS: 36415; 36430; 36556; 71045; 71270; 74178; 76856; 80048; 80053; 80076; 81001; 82435; 82550; 82803; 82947; 82948; 83036; 83605; 83735; 83880; 84100; 84132; 84145; 84295; 84484; 85014; 85018; 85025; 85027; 85610; 85730; 86850; 86900; 86901; 86923; 87040; 87071; 87077; 87088; 87186; 87205; 87635; 93005; 93306; 93356; 93926; 93970; 94002; 94003; 94150; 96375; B4082; C1757; G0378; J0171; J0360; J0690; J0692; J1450; J1644; J1815; J1940; J2001; J2250; J2405; J2704; J2919; J3010; J3475; J3490; J7030; P9016; P9045; Q9967; A4216; A4222; A4223; A4452; A4649; A6219; A9900; C1713; C1750; C1768

== ENCOUNTER → 2024-02-14 | Outpatient (CLI) | payer MEDICARE ==
[~2024-02-14] MED LIST changes: -ASPI-1012 PO; -CEPH500C2 PO; -DOXY100C5 PO; -GLIM4TAB36 PO; -SEMA1PEN3 SQ; -TELM40 PO
[2024-02-14 12:09] LABS: BASOPHILS # (AUTO) 0.04 K/uL (0.00-0.20); BASOPHILS % (AUTO) 0.7 % (0.0-5.0); EOSINOPHILS # (AUTO) 0.15 K/uL (0.00-0.70); EOSINOPHILS % (AUTO) 2.6 % (0.0-8.0); HEMATOCRIT 34.6 % (36-48); IMMATURE GRANULOCYTE ABSOLUTE 0.02 K/uL (0-1); LYMPHOCYTES # (AUTO) 1.6 K/uL (1.0-4.8); LYMPHOCYTES % (AUTO) 28.5 % (21.0-51.0); MEAN CORPUSCULAR HEMOGLOBIN 27.4 pg (27.0-33.0); MEAN CORPUSCULAR HGB CONC 31.5 g/dL (32.0-36.0); MEAN CORPUSCULAR VOLUME 86.9 fL (79-99); MONOCYTES # (AUTO) 0.7 K/uL (0.1-1.0); MONOCYTES % (AUTO) 12.7 % (3.0-13.0); NEUTROPHILS # (AUTO) 3.1 K/uL (1.8-7.7); NEUTROPHILS % (AUTO) 55.1 % (40.0-77.0); PLATELET COUNT (AUTO) 251 K/uL (130-400); RED BLOOD CELL COUNT(AUTO) 3.98 MIL/uL (4.00-5.50); RED CELL DISTRIBUTION WIDTH 14.3 % (11.0-15.5); WHITE BLOOD COUNT (AUTO) 5.7 K/uL (4.8-10.8)
== END | disposition home or self-care (01) ==
LOC: LAB 11:16
PROVIDERS: ATTEND Internal Medicine Cardiovascular Disease
DX: E78.5 Hyperlipidemia, unspecified (principal)
CPT/HCPCS: 36415; 85025